=== PATIENT | female | born 1950 | race Caucasian/White ===

== ENCOUNTER → 2016-08-12 | Outpatient (CLI) | payer MEDICARE, OTHER ==
--- NOTE | 2016-08-12 13:40 | WOMENS IMAGING REPORT ---
EXAM DESCRIPTION: BILAT SCREENING MAMMO W/CAD COMPLETED DATE/TIME: 08/12/2016 8:37 am REASON FOR STUDY: Z12.31, ROUTINE SCREENING MAMMO Z12.31 ENCNTR SCREEN MAMMOGRAM FOR MALIGNANT NEOP LASM OF ELISABETH COMPARISON: 2008, 2009 TECHNIQUE: Standard craniocaudal and mediolateral oblique views of each breast recorded using digita l acquisition. LIMITATIONS: None. FINDINGS: No masses, calcifications or architectural distortion. No areas of suspicion. Read with the assistance of CAD. .[facility] - R2 Cenova Version 1.3 .[facility] - R2 Cenova Version 1.3 .[facility] - R2 Cenova Version 2.4 .[facility] - R2 Cenova Version 2.4 .[facility] - R2 Database Modeler Version 9.2 BREAST DENSITY: b. There are scattered areas of fibroglandular density. BIRAD: 1 NEGATIVE RECOMMENDATION: ROUTINE SCREENING COMMENT: PATIENT NOTIFIED BY LETTER. The [employer] recommends an annual screening mammogram for women aged 40 years or over. Each patient will receive a reminder prior to the anniversary date of her mammogram. The [employer] (ACR) has developed recommendations for screening MRI of the breast s in certain patient populations, to be used in conjunction with mammography. Breast MRI surveillanc e may be appropriate for women with more than 20% lifetime risk of developing breast cancer as deter mined by genetic testing, significant family history of the disease, or history of mantle radiation f or Hodgkins Disease. ACR Practice Guidelines 2008. TECHNICAL DOCUMENTATION: FINDING NUMBER: (1) ASSESSMENT: (1) JOB ID: [id number] [employer]- All Rights Reserved
== END ==
LOC: WI 08:11
PROVIDERS: ATTEND Internal Medicine Geriatric Medicine
DX: Z12.31 Encounter for screening mammogram for malignant neoplasm of breast (principal)
CPT/HCPCS: 77067; G0202

== ENCOUNTER → 2016-08-20 | Outpatient (CLI) | payer MEDICARE, OTHER | LOC: RAD 11:45 | PROVIDERS: ATTEND Internal Medicine Medical Oncology | DX: R51 Headache (principal) | CPT/HCPCS: 70553; A9577 ==

== ENCOUNTER → 2016-09-15 | Outpatient (CLI) | payer MEDICARE, OTHER | LOC: RAD 14:47 | PROVIDERS: ATTEND Radiology Radiation Oncology | DX: C34.12 Malignant neoplasm of upper lobe, left bronchus or lung (principal); C77.1 Secondary and unspecified malignant neoplasm of intrathoracic lymph nodes; C34.02 Malignant neoplasm of left main bronchus | CPT/HCPCS: 78815; A9552 ==

== ENCOUNTER → 2016-09-16 | Outpatient (CLI) | payer MEDICARE, OTHER | LOC: RAD 11:13 | PROVIDERS: ATTEND Internal Medicine Medical Oncology | DX: C34.92 Malignant neoplasm of unspecified part of left bronchus or lung (principal); R06.02 Shortness of breath | CPT/HCPCS: 71275 ==

== ENCOUNTER 2016-09-17 13:56 | Inpatient (IN) | payer MEDICARE, OTHER ==
[2016-09-17 14:48] LABS: HEMATOCRIT 32.8 % (36.0-47.0); HEMOGLOBIN 11.1 g/dL (12.0-15.5); HGB HCT DIFFERENCE 0.5; MEAN CORPUSCULAR HEMOGLOBIN 28.5 pg (27.0-33.4); MEAN CORPUSCULAR HGB CONC 33.9 g/dL (32.0-36.0); MEAN CORPUSCULAR VOLUME 84 fl (80-97); RED BLOOD COUNT 3.89 10^6/uL (3.72-5.28); WHITE BLOOD COUNT 4.5 10^3/uL (4.0-10.5)
[2016-09-17] MEDS ORDERED: ACETAMINOPHEN 325 MG TABLET PO PRN (14:55)
[2016-09-17] MEDS ORDERED: GLUCAGON,HUMAN RECOMB 1 MG INJ IM PRN (15:01)
[2016-09-17] MEDS ORDERED: INSULIN LISPRO 100 UNIT/ML 3 ML VIAL SUBCUT PRN (15:01)
[2016-09-17] MEDS ORDERED: DEXTROSE 40% GEL 15 GM TUBE PO PRN ×2 (15:01)
[2016-09-17] MEDS ORDERED: DEXTROSE 50%-WATER 25 GM/50 ML DISP.SYRIN IV PRN ×2 (15:01)
[2016-09-17] MEDS ORDERED: LEVALBUTEROL HCL NEB 1.25 MG/3 ML AMPUL NEB PRN (15:05)
[2016-09-17 15:13] LABS: BAND NEUTROPHILS % (MANUAL) 1 % (3-5); BASOPHILS % (MANUAL) 0 % (0-2); EOSINOPHILS % (MANUAL) 1 % (0-6); LYMPHOCYTES % (MANUAL) 43 % (13-45); NUCLEATED RED BLOOD CELLS 1 /100 WBC (0); TOTAL CELLS COUNTED 100
[2016-09-17 15:15] LABS: ANISOCYTOSIS 1+; POLYCHROMASIA 1+
[2016-09-17 15:28] LABS: ALANINE AMINOTRANSFERASE 23 U/L (9-52); ALBUMIN 3.2 g/dL (3.5-5.0); ALKALINE PHOSPHATASE 96 U/L (38-126); ANION GAP 12 (5-19); ASPARTATE AMINO TRANSFERASE 19 U/L (14-36); BILIRUBIN,TOTAL 0.4 mg/dL (0.2-1.3); BLOOD UREA NITROGEN 10 mg/dL (7-20); CALCIUM 8.4 mg/dL (8.4-10.2); CARBON DIOXIDE 26 mmol/L (22-30); CHLORIDE 104 mmol/L (98-107); CREATININE RESULT 0.62 mg/dL (0.52-1.25); GLUCOSE 102 mg/dL (75-110); POTASSIUM 3.9 mmol/L (3.6-5.0); SODIUM 141.8 mmol/L (137-145); TOTAL PROTEIN 6.3 g/dL (6.3-8.2)
[2016-09-17 15:31] LABS: PROTHROMBIN TIME 14.2 SEC (11.4-15.4)
[2016-09-17 15:32] LABS: PARTIAL THROMBOPLASTIN TIME 31.3 SEC (23.5-35.8)
[2016-09-17] MEDS: NORMAL SALINE 1000 ML 1,000 ML IV PRN (16:33)
[2016-09-17 16:49] LABS: ARTERIAL BLOOD BASE EXCESS -0.5 mmol/L; ARTERIAL BLOOD O2 SATURATION 89.6 % (94-98)
[2016-09-17] MEDS: AMPICILLIN SODIUM/SULBACTAM NA 3 GM in NORMAL SALINE 100 ML IV SCH (17:53)
[2016-09-17] MEDS ORDERED: (PENDING PHARMACY ID) (Temazepam [Restoril] 30 MG) PO PRN (18:09)
--- NOTE | 2016-09-17 18:57 | PDOC H&P ---
History of Present Illness Admission Date/PCP: 09/17/16 13:56 BREANNA GONZALEZ MD History of Present Illness: ROBSON RODRIGUEZ is a 66 year old female admitted to my service following presentation to Dr. Edi Sands office due to persistent hypoxemia. Patient do have history of small cell lung cancer on chemotherapy and possible upcoming radiation therapy. Patient was referred to Dr Sands by Dr Martinez, patient's medical oncologist, due to worsening difficulty with breathing. She is currently on supplemental oxygen via nasal canula on portable concentrator at home. Patient did admit to increased nonproductive coughing. she had a CTA chest completed at our facility on 09/16/2016 for evaluation of her shortness of breath with findings suggestive of left basilar air space disease process. No evidence of pulmonary embolism. Patient denied any definite fever but reported been cold all the time. No demonstrable chills. She denied any chest pain. No nausea or vomiting. No abdominal pain. Appetite and p.o intake remain minimal. Her oxygen saturation remain below 90 % despite increase in oxygen delivery at 6 Liters / minute via nasal canula. Past Medical History Cardiac Medical History: Reports: Hyperlipidema Denies: Coronary Artery Disease, Myocardial Infarction, Hypertension Pulmonary Medical History: Reports: Asthma - medicated prn/no hospitalizations, Chronic Obstructive Pulmonary Disease (COPD) - 2l Denies: Bronchitis, Pneumonia Neurological Medical History: Denies: Seizures Endocrine Medical History: Reports: Diabetes Mellitus Type 2 GI Medical History: Reports: Gastroesophageal Reflux Disease Denies: Hepatitis, Hiatal Hernia Musculoskeltal Medical History: Reports: Arthritis Psychiatric Medical History: Reports: Depression Hematology: Denies: Anemia, Sickle Cell Disease Past Surgical History Past Surgical History: Reports: Section, Hysterectomy Denies: Amputation, Mastectomy, Pacemaker Comment Only: Orthopedic Surgery - bilateral knee Social History Smoking Status: Current Every Day Smoker Cigarettes Packs Per Day: 1 Number of Years Smokin Frequency of Alcohol Use: None Hx Recreational Drug Use: No Drugs: None Hx Prescription Drug Abuse: No - Advance Directive Resuscitation Status: Do Not Resuscitate - I had extensive discussion with patient regarding resuscitation status, at this time in full lucidity patient elect to be a DNR status. Spouse and assigned nurse at bedside when this discussion and decision was made. Family History Family History: None Parental Family History Reviewed: Yes Children Family History Reviewed: Yes Sibling(s) Family History Reviewed.: Yes Medication/Allergy Home Medications: Albuterol Sulfate [Albuterol Sulfate 2.5mg/3 mL] 5 mg NEB RTQ6 09/17/16 Chlordiazepoxide/Clidinium Br [Librax Capsule] 1 cap PO ACHS 09/17/16 Ipratropium/Albuterol Sulfate [Duoneb 3 ml Ampul] 3 ml NEB RTQ6HP PRN 09/17/16 Lorazepam [Ativan 0.5 mg Tablet] 0.5 mg PO Q6HP PRN 09/17/16 Omeprazole 20 mg PO DAILYP PRN 09/17/16 Ondansetron HCl [Zofran 8 mg Tablet] 8 mg PO Q8 09/17/16 Pregabalin [Lyrica 75 mg Capsule] 75 mg PO Q6 09/17/16 Simvastatin [Zocor 20 mg Tablet] 20 mg PO QHS 09/17/16 Temazepam [Restoril] 30 mg PO HSP PRN 09/17/16 Venlafaxine HCl [Effexor 75 mg Tablet] 75 mg PO Q12 09/17/16 Allergies/Adverse Reactions: codeine [Codeine] Adverse Reaction (Unknown, Verified 10/24/15 10:31) Dizziness Review of Systems Constitutional: PRESENT: anorexia, chills, weakness. ABSENT: as per HPI, fatigue, fever(s), headache(s), night sweats, weight gain, weight loss, other Eyes: ABSENT: visual disturbances Ears: ABSENT: hearing changes Nose, Mouth, and Throat: ABSENT: as per HPI, headache(s), mouth pain, sore throat, vertigo, other Cardiovascular: PRESENT: dyspnea on exertion. ABSENT: as per HPI, chest pain, edema, orthropnea, palpitations, other Respiratory: PRESENT: cough, dyspnea. ABSENT: as per HPI, hemoptysis, sputum, other Gastrointestinal: ABSENT: as per HPI, abdominal pain, bloating, coffee ground emesis, constipation, diarrhea, dysphagia, heartburn, hematemesis, hematochezia , melena, nausea, vomiting, other Genitourinary: ABSENT: dysuria, hematuria Musculoskeletal: PRESENT: deformity - related to arthritis involvement of joint Integumentary: ABSENT: rash, wounds Neurological: ABSENT: abnormal gait, abnormal speech, confusion, dizziness, focal weakness, syncope Psychiatric: PRESENT: anxiety. ABSENT: as per HPI, depression, hallucinations, homidical ideation, suicidal ideation, other Endocrine: ABSENT: cold intolerance, heat intolerance, menstrual abnormalities, polydipsia, polyuria Hematologic/Lymphatic: ABSENT: easy bleeding, easy bruising, lymphadenopathy Physical Exam Vital Signs: Temp Pulse Resp BP Pulse Ox 97.5 F 110 H 22 H 123/55 L 89 L 09/17/16 14:54 09/17/16 16:25 09/17/16 16:25 09/17/16 14:54 09/17/16 16:25 Intake & Output 09/16/16 09/17/16 09/18/16 06:59 06:59 06:59 Intake Total 800 Balance 800 Weight 66.3 kg General appearance: PRESENT: mild distress - with supplemental oxygen via nasal cannula in use Head exam: PRESENT: atraumatic, normocephalic Eye exam: PRESENT: conjunctiva pink, EOMI, PERRLA. ABSENT: scleral icterus Ear exam: PRESENT: normal external ear exam Mouth exam: PRESENT: moist, tongue midline Throat exam: ABSENT: post pharyngeal erythema, tonsillar erythema, tonsillar exudate, tonsillogmegaly, other Neck exam: PRESENT: full ROM. ABSENT: carotid bruit, JVD, lymphadenopathy, thyromegaly Respiratory exam: PRESENT: crackles, decreased breath sounds, prolonged expiratory phas, rhonchi, tachypnea, wheezes Cardiovascular exam: PRESENT: tachycardia. ABSENT: bradycardia, clicks, diastolic murmur, gallop, irregular rhythm, RRR, rubs, +S1, +S2, systolic murmur , other Pulses: PRESENT: normal dorsalis pedis pul, +2 pedal pulses bilateral Vascular exam: PRESENT: normal capillary refill GI/Abdominal exam: PRESENT: normal bowel sounds, soft. ABSENT: distended, guarding, mass, organolmegaly, rebound, tenderness Rectal exam: PRESENT: deferred Extremities exam: PRESENT: full ROM Musculoskeletal exam: PRESENT: deformity - due to joint involvement with arthritis Neurological exam: PRESENT: alert, awake, oriented to person, oriented to place , oriented to time, oriented to situation, CN II-XII grossly intact. ABSENT: motor sensory deficit Psychiatric exam: PRESENT: appropriate affect, normal mood. ABSENT: homicidal ideation, suicidal ideation Skin exam: PRESENT: dry, intact, warm. ABSENT: cyanosis, rash Results Laboratory Results: 09/17/16 14:32 09/17/16 14:32 09/17/16 09/17/16 09/17/16 14:32 14:32 16:25 WBC 4.5 RBC 3.89 Hgb 11.1 L Hct 32.8 L MCV 84 MCH 28.5 MCHC 33.9 RDW 17.0 H Plt Count 248 Seg Neutrophils % Not Reportable Lymphocytes % Not Reportable Monocytes % Not Reportable Eosinophils % Not Reportable Basophils % Not Reportable Absolute Neutrophils Not Reportable Absolute Lymphocytes Not Reportable Absolute Monocytes Not Reportable Absolute Eosinophils Not Reportable Absolute Basophils Not Reportable Carbonic Acid 1.07 HCO3/H2CO3 Ratio 21:1 ABG pH 7.43 ABG pCO2 35.7 ABG pO2 54.6 L ABG HCO3 23.3 ABG O2 Saturation 89.6 L ABG Base Excess -0.5 FiO2 6 L Sodium 141.8 Potassium 3.9 Chloride 104 Carbon Dioxide 26 Anion Gap 12 BUN 10 Creatinine 0.62 Est GFR ( Amer) > 60 Est GFR (Non-Af Amer) > 60 Glucose 102 Calcium 8.4 Total Bilirubin 0.4 AST 19 ALT 23 Alkaline Phosphatase 96 Total Protein 6.3 Albumin 3.2 L Status: Imported from PACS - CTA Chest completed on 09/16/2016 at this facility. Assessment & Plan - Diagnosis (1) Acute and chronic respiratory failure Qualifiers: Respiratory failure complication: hypoxia Qualified Code(s): J96.21 - Acute and chronic respiratory failure with hypoxia Is this a current diagnosis for this admission?: YesPlan: See admitting physician orders. (2) Probable sepsis Is this a current diagnosis for this admission?: YesPlan: See admitting physician orders. (3) Pneumonia due to infectious organism Qualifiers: Laterality: left Lung location: lower lobe of lung Qualified Code(s): J18.1 - Lobar pneumonia, unspecified organism Is this a current diagnosis for this admission?: YesPlan: See admitting physician orders. (4) COPD (chronic obstructive pulmonary disease) with emphysema Qualifiers: Emphysema type: unspecified Qualified Code(s): J43.9 - Emphysema, unspecified Is this a current diagnosis for this admission?: YesPlan: See admitting physician orders. (5) Small cell lung cancer Qualifiers: Laterality: left Qualified Code(s): C34.92 - Malignant neoplasm of unspecified part of left bronchus or lung Is this a current diagnosis for this admission?: YesPlan: See admitting physician orders. (6) Diabetes mellitus type 2 in nonobese Is this a current diagnosis for this admission?: YesPlan: See admitting physician orders. (7) Mixed anxiety and depressive disorder Is this a current diagnosis for this admission?: YesPlan: See admitting physician orders. (8) GERD (gastroesophageal reflux disease) Qualifiers: Esophagitis presence: without esophagitis Qualified Code(s): K21.9 - Gastro-esophageal reflux disease without esophagitis Is this a current diagnosis for this admission?: YesPlan: See admitting physician orders. (9) Osteoarthritis Qualifiers: Osteoarthritis location: multiple joints Osteoarthritis type: primary Qualified Code(s): M15.0 - Primary generalized (osteo)arthritis Is this a current diagnosis for this admission?: YesPlan: See admitting physician orders. (10) Persistent insomnia Is this a current diagnosis for this admission?: YesPlan: See admitting physician orders. - Time Time Spent: 50 to 70 Minutes Medications reviewed and adjusted accordingly: Yes Anticipated discharge: Home with Homehealth Within: Other - Inpatient Certification Based on my medical assessment, after consideration of the patient's comorbidities, presenting symptoms, or acuity I expect that the services needed warrant INPATIENT care.: Yes I certify that my determination is in accordance with my understanding of Medicare's requirements for reasonable and necessary INPATIENT services [42 CFR 412.3e].: Yes Medical Necessity: Need Close Monitoring Due to Risk of Patient Decompensation, Need For IV Fluids, Need For Continuous Telemetry Monitoring, Need for Nebulizer Therapy and Monitoring of Response, Need for IV Antibiotics, Risk of Complication if Not Cared For in Hospital Post 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
[2016-09-17] MEDS: SIMVASTATIN 10 MG TABLET PO SCH (21:45)
[2016-09-17] MEDS: VENLAFAXINE HCL 75 MG TABLET PO SCH (21:46)
[2016-09-17] MEDS: BENZONATATE 100 MG CAPSULE PO SCH (21:46)
[2016-09-17] MEDS: LORAZEPAM 0.5 MG TABLET PO PRN (21:51)
[2016-09-17] MEDS: TEMAZEPAM 15 MG CAPSULE PO PRN (21:51)
[2016-09-18] MEDS ORDERED: PREGABALIN 75 MG CAPSULE PO SCH
[2016-09-18] MEDS: AMPICILLIN SODIUM/SULBACTAM NA 3 GM in NORMAL SALINE 100 ML IV SCH ×4 (01:00→17:48)
[2016-09-18] MEDS: NORMAL SALINE 1000 ML 1,000 ML IV PRN (01:03)
[2016-09-18] MEDS: BENZONATATE 100 MG CAPSULE PO SCH ×3 (05:20→21:38)
[2016-09-18] MEDS: LANSOPRAZOLE 30 MG TAB.RAP.DR PO SCH (05:20)
[2016-09-18 06:44] LABS: HEMATOCRIT 28.5 % (36.0-47.0); HEMOGLOBIN 9.6 g/dL (12.0-15.5); HGB HCT DIFFERENCE 0.3; MEAN CORPUSCULAR HEMOGLOBIN 28.1 pg (27.0-33.4); MEAN CORPUSCULAR HGB CONC 33.7 g/dL (32.0-36.0); MEAN CORPUSCULAR VOLUME 84 fl (80-97); RED BLOOD COUNT 3.41 10^6/uL (3.72-5.28); RED CELL DISTRIBUTION WIDTH 17.3 % (11.5-14.0); WHITE BLOOD COUNT 5.3 10^3/uL (4.0-10.5)
[2016-09-18 06:55] LABS: ANION GAP 8 (5-19); BLOOD UREA NITROGEN 10 mg/dL (7-20); CALCIUM 7.9 mg/dL (8.4-10.2); CARBON DIOXIDE 26 mmol/L (22-30); CHLORIDE 108 mmol/L (98-107); GLUCOSE 96 mg/dL (75-110); POTASSIUM 3.7 mmol/L (3.6-5.0); SODIUM 141.9 mmol/L (137-145)
[2016-09-18 07:12] LABS: BASOPHILS % (MANUAL) 0 % (0-2); EOSINOPHILS % (MANUAL) 0 % (0-6); LYMPHOCYTES % (MANUAL) 27 % (13-45); TOTAL CELLS COUNTED 100
[2016-09-18 07:14] LABS: ANISOCYTOSIS 1+; OVALOCYTES SLIGHT; POIKILOCYTOSIS SLIGHT; POLYCHROMASIA SLIGHT; SCHISTOCYTES SLIGHT; TOXIC GRANULATION 1+
[2016-09-18] MEDS: ENOXAPARIN SODIUM INJ 40 MG/0.4 ML DISP.SYRIN SUBCUT SCH (08:23)
--- NOTE | 2016-09-18 08:28 | PDOC PROGRESS REPORT ---
Subjective Progress Note for:: 09/18/16 Subjective:: Patient reported some improvement in her breathing. Coughing persist but minimally productive. No chest pain. No nausea, vomiting or abdominal pain. No reported fever or chills. Appetite and po intake remain fair. She remain on IV Unasyn coverage. Blood culture is no growth to date. Physical Exam Vital Signs: Temp Pulse Resp BP Pulse Ox 98.2 F 106 H 20 137/75 H 93 09/18/16 07:43 09/18/16 07:43 09/18/16 07:43 09/18/16 07:43 09/18/16 07:43 Intake & Output 09/17/16 09/18/16 09/19/16 06:59 06:59 06:59 Intake Total 1825 Output Total 0 Balance 1825 Weight 66.3 kg General appearance: PRESENT: no acute distress - on supplemental oxygen via nasal canula at 6L/min, cooperative, mild distress - on supplemental oxygen via nasal canula at Head exam: PRESENT: atraumatic, normocephalic Eye exam: PRESENT: conjunctiva pink, EOMI, PERRLA. ABSENT: scleral icterus Ear exam: PRESENT: normal external ear exam Mouth exam: PRESENT: moist, tongue midline Neck exam: PRESENT: full ROM. ABSENT: carotid bruit, JVD, lymphadenopathy, thyromegaly Respiratory exam: PRESENT: crackles - scattered, decreased breath sounds - at lung bases, rhonchi - minimal Cardiovascular exam: PRESENT: RRR. ABSENT: diastolic murmur, rubs, systolic murmur GI/Abdominal exam: PRESENT: normal bowel sounds, soft. ABSENT: distended, guarding, mass, organolmegaly, rebound, tenderness Extremities exam: PRESENT: full ROM Musculoskeletal exam: PRESENT: deformity - due to arthritis joint involvement Neurological exam: PRESENT: alert, awake, oriented to person, oriented to place , oriented to time, oriented to situation, CN II-XII grossly intact. ABSENT: motor sensory deficit Psychiatric exam: PRESENT: appropriate affect, normal mood. ABSENT: homicidal ideation, suicidal ideation Results Laboratory Results: 09/18/16 05:35 09/18/16 05:35 09/17/16 09/17/16 09/17/16 14:32 14:32 16:25 WBC 4.5 RBC 3.89 Hgb 11.1 L Hct 32.8 L MCV 84 MCH 28.5 MCHC 33.9 RDW 17.0 H Plt Count 248 Seg Neutrophils % Not Reportable Lymphocytes % Not Reportable Monocytes % Not Reportable Eosinophils % Not Reportable Basophils % Not Reportable Absolute Neutrophils Not Reportable Absolute Lymphocytes Not Reportable Absolute Monocytes Not Reportable Absolute Eosinophils Not Reportable Absolute Basophils Not Reportable Carbonic Acid 1.07 HCO3/H2CO3 Ratio 21:1 ABG pH 7.43 ABG pCO2 35.7 ABG pO2 54.6 L ABG HCO3 23.3 ABG O2 Saturation 89.6 L ABG Base Excess -0.5 FiO2 6 L Sodium 141.8 Potassium 3.9 Chloride 104 Carbon Dioxide 26 Anion Gap 12 BUN 10 Creatinine 0.62 Est GFR ( Amer) > 60 Est GFR (Non-Af Amer) > 60 Glucose 102 Calcium 8.4 Total Bilirubin 0.4 AST 19 ALT 23 Alkaline Phosphatase 96 Total Protein 6.3 Albumin 3.2 L 09/18/16 09/18/16 05:35 05:35 WBC 5.3 RBC 3.41 L Hgb 9.6 L Hct 28.5 L MCV 84 MCH 28.1 MCHC 33.7 RDW 17.3 H Plt Count 249 Seg Neutrophils % Not Reportable Lymphocytes % Not Reportable Monocytes % Not Reportable Eosinophils % Not Reportable Basophils % Not Reportable Absolute Neutrophils Not Reportable Absolute Lymphocytes Not Reportable Absolute Monocytes Not Reportable Absolute Eosinophils Not Reportable Absolute Basophils Not Reportable Carbonic Acid HCO3/H2CO3 Ratio ABG pH ABG pCO2 ABG pO2 ABG HCO3 ABG O2 Saturation ABG Base Excess FiO2 Sodium 141.9 Potassium 3.7 Chloride 108 H Carbon Dioxide 26 Anion Gap 8 BUN 10 Creatinine 0.50 L Est GFR ( Amer) > 60 Est GFR (Non-Af Amer) > 60 Glucose 96 Calcium 7.9 L Total Bilirubin AST ALT Alkaline Phosphatase Total Protein Albumin Assessment & Plan - Diagnosis (1) Acute and chronic respiratory failure Qualifiers: Respiratory failure complication: hypoxia Qualified Code(s): J96.21 - Acute and chronic respiratory failure with hypoxia Is this a current diagnosis for this admission?: YesPlan: See attending physician orders. (2) Probable sepsis Is this a current diagnosis for this admission?: YesPlan: See attending physician orders. (3) Pneumonia due to infectious organism Qualifiers: Laterality: left Lung location: lower lobe of lung Qualified Code(s): J18.1 - Lobar pneumonia, unspecified organism Is this a current diagnosis for this admission?: YesPlan: See attending physician orders. (4) COPD (chronic obstructive pulmonary disease) with emphysema Qualifiers: Emphysema type: unspecified Qualified Code(s): J43.9 - Emphysema, unspecified Is this a current diagnosis for this admission?: YesPlan: See attending physician orders. (5) Small cell lung cancer Qualifiers: Laterality: left Qualified Code(s): C34.92 - Malignant neoplasm of unspecified part of left bronchus or lung Is this a current diagnosis for this admission?: YesPlan: See attending physician orders. (6) Diabetes mellitus type 2 in nonobese Is this a current diagnosis for this admission?: YesPlan: See attending physician orders. Patient refused diabetic dietary restrictions. (7) Mixed anxiety and depressive disorder Is this a current diagnosis for this admission?: YesPlan: See attending physician orders. (8) GERD (gastroesophageal reflux disease) Qualifiers: Esophagitis presence: without esophagitis Qualified Code(s): K21.9 - Gastro-esophageal reflux disease without esophagitis Is this a current diagnosis for this admission?: YesPlan: See attending physician orders. (9) Osteoarthritis Qualifiers: Osteoarthritis location: multiple joints Osteoarthritis type: primary Qualified Code(s): M15.0 - Primary generalized (osteo)arthritis Is this a current diagnosis for this admission?: YesPlan: See attending physician orders. (10) Persistent insomnia Is this a current diagnosis for this admission?: YesPlan: See attending physician orders. - Time Time Spent with patient: 25-34 minutes Medications reviewed and adjusted accordingly: Yes Anticipated discharge: Home with Homehealth - Inpatient Certification Based on my medical assessment, after consideration of the patient's comorbidities, presenting symptoms, or acuity I expect that the services needed warrant INPATIENT care.: Yes I certify that my determination is in accordance with my understanding of Medicare's requirements for reasonable and necessary INPATIENT services [42 CFR 412.3e].: Yes Medical Necessity: Need Close Monitoring Due to Risk of Patient Decompensation, Need For IV Fluids, Need For Continuous Telemetry Monitoring, Need for IV Antibiotics, Risk of Complication if Not Cared For in Hospital Post 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
[2016-09-18] MEDS: VENLAFAXINE HCL 75 MG TABLET PO SCH ×2 (09:02→21:38)
[2016-09-18] MEDS: LORAZEPAM 0.5 MG TABLET PO PRN ×2 (09:03→21:38)
[2016-09-18] MEDS: DOCUSATE SODIUM 100 MG CAPSULE PO SCH (09:04)
[2016-09-18] MEDS: NICOTINE 21 MG/24 HR PATCH.TD24 TD SCH (09:04)
[2016-09-18 14:12] LABS: APPEARANCE,URINE CLEAR; BILIRUBIN,URINE NEGATIVE (NEGATIVE); GLUCOSE, URINE NEGATIVE (NEGATIVE); KETONES,URINE NEGATIVE (NEGATIVE); LEUKOCYTE ESTERASE,URINE NEGATIVE (NEGATIVE); NITRITE,URINE NEGATIVE (NEGATIVE); PROTEIN,URINE NEGATIVE (NEGATIVE); UROBILINOGEN,URINE NEGATIVE mg/dL (<2.0)
[2016-09-18] MEDS: SIMVASTATIN 10 MG TABLET PO SCH (21:38)
[2016-09-18] MEDS: TEMAZEPAM 15 MG CAPSULE PO PRN (21:38)
[2016-09-19] MEDS: AMPICILLIN SODIUM/SULBACTAM NA 3 GM in NORMAL SALINE 100 ML IV SCH ×5 (00:51→23:46)
[2016-09-19] MEDS: BENZONATATE 100 MG CAPSULE PO SCH ×3 (06:01→20:42)
[2016-09-19] MEDS: LANSOPRAZOLE 30 MG TAB.RAP.DR PO SCH (06:02)
[2016-09-19] MEDS: VENLAFAXINE HCL 75 MG TABLET PO SCH ×2 (10:22→20:43)
[2016-09-19] MEDS: LORAZEPAM 0.5 MG TABLET PO PRN ×2 (10:22→20:43)
[2016-09-19] MEDS: NICOTINE 21 MG/24 HR PATCH.TD24 TD SCH (10:24)
[2016-09-19] MEDS: ENOXAPARIN SODIUM INJ 40 MG/0.4 ML DISP.SYRIN SUBCUT SCH (10:24)
[2016-09-19] MEDS: DOCUSATE SODIUM 100 MG CAPSULE PO SCH (10:24)
--- NOTE | 2016-09-19 11:32 | Physician Advisory Note ---
Physician Advisor ProgressNote .: Pursuant to the plan for [facility], I have reviewed the medical record for this patient. Physician Advisor Statement: Possible documentation opportunities if attending agrees: 1. "LLL pneumonia, suspect gram-negative organism given underlying COPD & chemotx" 2. "probable sepsis, due to pneumonia" (always must state explicitly the cause of sepsis for the coders, even though it may seem obvious to clinician) 3. "protein-calorie malnutrition [state mild, mod, or severe] with BMI 27.6, Cr 0.50, SCLC on chemotherapy, ____[?wt loss, ?appetite loss, ]" [if possible, give specifics on intake, wt loss, loss of SQ fat & muscle mass, diminished hand program therapist strength, & clinical importance such as (A) nutritional assessment ordered, (B) modified diet or supplements ordered, (C) additional labs ordered, (D) prolonged wound healing time, (E) delayed infxn clearance] As always, if concerned about any unstable VS or abnormal labs, please comment on them & note what doing about them, & please document each day the potential clinical problems you are concerned could occur if pt not kept in hospital for tx at this time. Thanks for your help with documentation accuracy/specificity improvement! Stefania Santos MD [facility] Physician Advisor, Fellow of Hospital Medicine
--- NOTE | 2016-09-19 19:58 | PDOC PROGRESS REPORT ---
Subjective Progress Note for:: 09/19/16 Subjective:: Patient was seen by the bedside, she was admitted because of pneumonia, she complained of diarrhea, loose stool, the stool study was negative for Clostridium difficile toxin, she will be treated symptomatically with Lomotil Physical Exam Vital Signs: Temp Pulse Resp BP Pulse Ox 98.1 F 70 19 125/74 90 L 09/19/16 15:35 09/19/16 19:00 09/19/16 15:35 09/19/16 15:35 09/19/16 15:35 Intake & Output 09/18/16 09/19/16 09/20/16 06:59 06:59 06:59 Intake Total 1825 3144 1159 Output Total 0 400 Balance 1825 2744 1159 Weight 66.3 kg 66.3 kg General appearance: PRESENT: no acute distress Eye exam: PRESENT: PERRLA Respiratory exam: PRESENT: crackles Cardiovascular exam: PRESENT: +S1, +S2 GI/Abdominal exam: PRESENT: soft Neurological exam: PRESENT: alert, CN II-XII grossly intact Results Laboratory Results: 09/18/16 05:35 09/18/16 05:35 Assessment & Plan - Diagnosis (1) Acute and chronic respiratory failure Qualifiers: Respiratory failure complication: hypoxia Qualified Code(s): J96.21 - Acute and chronic respiratory failure with hypoxia Is this a current diagnosis for this admission?: Yes (2) Diarrhea Is this a current diagnosis for this admission?: YesPlan: lomotil (3) Diabetes mellitus type 2 in nonobese Is this a current diagnosis for this admission?: Yes (4) GERD (gastroesophageal reflux disease) Qualifiers: Esophagitis presence: without esophagitis Qualified Code(s): K21.9 - Gastro-esophageal reflux disease without esophagitis Is this a current diagnosis for this admission?: Yes (5) Mixed anxiety and depressive disorder Is this a current diagnosis for this admission?: Yes (6) COPD (chronic obstructive pulmonary disease) with emphysema Qualifiers: Emphysema type: unspecified Qualified Code(s): J43.9 - Emphysema, unspecified Is this a current diagnosis for this admission?: Yes (7) Pneumonia due to infectious organism Qualifiers: Laterality: left Lung location: lower lobe of lung Qualified Code(s): J18.1 - Lobar pneumonia, unspecified organism Is this a current diagnosis for this admission?: YesPlan: She will continue the antibiotic
[2016-09-19] MEDS: TEMAZEPAM 15 MG CAPSULE PO PRN (20:42)
[2016-09-19] MEDS: SIMVASTATIN 10 MG TABLET PO SCH (20:43)
[2016-09-19] MEDS: DIPHENOXYLATE HCL/ATROP SULF 2.5-0.025 MG TABLET PO SCH (20:43)
[2016-09-19] MEDS: NORMAL SALINE 1000 ML 1,000 ML IV PRN (23:48)
[2016-09-20] MEDS: BENZONATATE 100 MG CAPSULE PO SCH ×3 (05:50→21:15)
[2016-09-20] MEDS: LANSOPRAZOLE 30 MG TAB.RAP.DR PO SCH (05:50)
[2016-09-20] MEDS: AMPICILLIN SODIUM/SULBACTAM NA 3 GM in NORMAL SALINE 100 ML IV SCH ×4 (05:50→23:04)
[2016-09-20] MEDS: ENOXAPARIN SODIUM INJ 40 MG/0.4 ML DISP.SYRIN SUBCUT SCH (08:34)
[2016-09-20] MEDS: DIPHENOXYLATE HCL/ATROP SULF 2.5-0.025 MG TABLET PO SCH ×4 (09:37→21:15)
[2016-09-20] MEDS: VENLAFAXINE HCL 75 MG TABLET PO SCH ×2 (09:37→21:14)
[2016-09-20] MEDS: LORAZEPAM 0.5 MG TABLET PO PRN ×2 (09:40→21:14)
[2016-09-20] MEDS: DOCUSATE SODIUM 100 MG CAPSULE PO SCH (09:41)
[2016-09-20] MEDS: NICOTINE 21 MG/24 HR PATCH.TD24 TD SCH (09:41)
[2016-09-20] MEDS: TEMAZEPAM 15 MG CAPSULE PO PRN (21:14)
[2016-09-20] MEDS: SIMVASTATIN 10 MG TABLET PO SCH (21:14)
[2016-09-21] MEDS: NORMAL SALINE 1000 ML 1,000 ML IV PRN (02:21)
[2016-09-21] MEDS: LANSOPRAZOLE 30 MG TAB.RAP.DR PO SCH (06:19)
[2016-09-21] MEDS: AMPICILLIN SODIUM/SULBACTAM NA 3 GM in NORMAL SALINE 100 ML IV SCH ×4 (06:19→23:58)
[2016-09-21] MEDS: BENZONATATE 100 MG CAPSULE PO SCH ×4 (06:21→22:17)
[2016-09-21] MEDS: LORAZEPAM 0.5 MG TABLET PO PRN ×2 (09:16→22:17)
[2016-09-21] MEDS: DIPHENOXYLATE HCL/ATROP SULF 2.5-0.025 MG TABLET PO SCH ×5 (09:16→22:15)
[2016-09-21] MEDS: ENOXAPARIN SODIUM INJ 40 MG/0.4 ML DISP.SYRIN SUBCUT SCH (09:17)
[2016-09-21] MEDS: NICOTINE 21 MG/24 HR PATCH.TD24 TD SCH (09:17)
[2016-09-21] MEDS: VENLAFAXINE HCL 75 MG TABLET PO SCH ×2 (09:17→22:17)
[2016-09-21] MEDS: DOCUSATE SODIUM 100 MG CAPSULE PO SCH (09:17)
--- NOTE | 2016-09-21 16:27 | PDOC PROGRESS REPORT ---
Subjective Progress Note for:: 09/20/16 Subjective:: She was seen by the bedside she continues to have diarrhea despite taking Lomotil Physical Exam Vital Signs: Temp Pulse Resp BP Pulse Ox 98.5 F 87 18 135/65 H 96 09/20/16 15:30 09/20/16 19:00 09/20/16 15:30 09/20/16 15:30 09/20/16 17:20 Intake & Output 09/19/16 09/20/16 09/21/16 06:59 06:59 06:59 Intake Total 3144 1759 500 Output Total 400 Balance 2744 1759 500 Weight 66.3 kg General appearance: PRESENT: no acute distress Head exam: PRESENT: atraumatic Eye exam: PRESENT: PERRLA Respiratory exam: PRESENT: decreased breath sounds Cardiovascular exam: PRESENT: +S1, +S2 Results Laboratory Results: 09/18/16 05:35 09/18/16 05:35 09/18/16 12:54 Clean Catch Midstream Urine Culture - Final NO GROWTH 2 DAYS Assessment & Plan - Diagnosis (1) Acute and chronic respiratory failure Qualifiers: Respiratory failure complication: hypoxia Qualified Code(s): J96.21 - Acute and chronic respiratory failure with hypoxia Is this a current diagnosis for this admission?: Yes (2) Diarrhea Is this a current diagnosis for this admission?: Yes (3) Diabetes mellitus type 2 in nonobese Is this a current diagnosis for this admission?: Yes (4) GERD (gastroesophageal reflux disease) Qualifiers: Esophagitis presence: without esophagitis Qualified Code(s): K21.9 - Gastro-esophageal reflux disease without esophagitis Is this a current diagnosis for this admission?: Yes (5) Mixed anxiety and depressive disorder Is this a current diagnosis for this admission?: Yes (6) COPD (chronic obstructive pulmonary disease) with emphysema Qualifiers: Emphysema type: unspecified Qualified Code(s): J43.9 - Emphysema, unspecified Is this a current diagnosis for this admission?: Yes (7) Pneumonia due to infectious organism Qualifiers: Laterality: left Lung location: lower lobe of lung Qualified Code(s): J18.1 - Lobar pneumonia, unspecified organism Is this a current diagnosis for this admission?: Yes
--- NOTE | 2016-09-21 16:30 | PDOC PROGRESS REPORT ---
Subjective Progress Note for:: 09/21/16 Subjective:: She is still complaining of diarrhea though she is improving, she would love to go home Physical Exam Vital Signs: Temp Pulse Resp BP Pulse Ox 98.0 F 75 18 135/65 H 94 09/21/16 12:40 09/21/16 12:40 09/21/16 12:40 09/21/16 12:40 09/21/16 12:40 Intake & Output 09/20/16 09/21/16 09/22/16 06:59 06:59 06:59 Intake Total 1759 1680 300 Balance 1759 1680 300 General appearance: PRESENT: no acute distress Eye exam: PRESENT: PERRLA Neck exam: PRESENT: full ROM Respiratory exam: PRESENT: decreased breath sounds Cardiovascular exam: PRESENT: +S1, +S2 GI/Abdominal exam: PRESENT: soft Neurological exam: PRESENT: alert Results Laboratory Results: 09/18/16 05:35 09/18/16 05:35 Assessment & Plan - Diagnosis (1) Acute and chronic respiratory failure Qualifiers: Respiratory failure complication: hypoxia Qualified Code(s): J96.21 - Acute and chronic respiratory failure with hypoxia Is this a current diagnosis for this admission?: Yes (2) Diarrhea Is this a current diagnosis for this admission?: Yes (3) Diabetes mellitus type 2 in nonobese Is this a current diagnosis for this admission?: Yes (4) GERD (gastroesophageal reflux disease) Qualifiers: Esophagitis presence: without esophagitis Qualified Code(s): K21.9 - Gastro-esophageal reflux disease without esophagitis Is this a current diagnosis for this admission?: Yes (5) Mixed anxiety and depressive disorder Is this a current diagnosis for this admission?: Yes (6) COPD (chronic obstructive pulmonary disease) with emphysema Qualifiers: Emphysema type: unspecified Qualified Code(s): J43.9 - Emphysema, unspecified Is this a current diagnosis for this admission?: Yes (7) Pneumonia due to infectious organism Qualifiers: Laterality: left Lung location: lower lobe of lung Qualified Code(s): J18.1 - Lobar pneumonia, unspecified organism Is this a current diagnosis for this admission?: YesPlan: She will continue present antibiotic
[2016-09-21] MEDS: TEMAZEPAM 15 MG CAPSULE PO PRN (22:17)
[2016-09-21] MEDS: SIMVASTATIN 10 MG TABLET PO SCH (22:17)
[2016-09-22] MEDS: NORMAL SALINE 1000 ML 1,000 ML IV PRN (04:26)
[2016-09-22] MEDS: BENZONATATE 100 MG CAPSULE PO SCH ×3 (06:57→21:24)
[2016-09-22] MEDS: AMPICILLIN SODIUM/SULBACTAM NA 3 GM in NORMAL SALINE 100 ML IV SCH ×4 (06:57→23:58)
[2016-09-22] MEDS: LANSOPRAZOLE 30 MG TAB.RAP.DR PO SCH (06:58)
[2016-09-22] MEDS: ENOXAPARIN SODIUM INJ 40 MG/0.4 ML DISP.SYRIN SUBCUT SCH (09:08)
[2016-09-22] MEDS: NICOTINE 21 MG/24 HR PATCH.TD24 TD SCH (09:09)
[2016-09-22] MEDS: DIPHENOXYLATE HCL/ATROP SULF 2.5-0.025 MG TABLET PO SCH ×4 (09:13→21:26)
[2016-09-22] MEDS: VENLAFAXINE HCL 75 MG TABLET PO SCH ×2 (09:13→21:24)
[2016-09-22] MEDS: LORAZEPAM 0.5 MG TABLET PO PRN ×2 (09:15→21:23)
[2016-09-22] MEDS: DOCUSATE SODIUM 100 MG CAPSULE PO SCH (09:16)
--- NOTE | 2016-09-22 15:25 | PDOC PROGRESS REPORT ---
Subjective Progress Note for:: 09/22/16 Subjective:: She has no new complaints Physical Exam Vital Signs: Temp Pulse Resp BP Pulse Ox 97.7 F 114 H 19 97/64 L 90 L 09/22/16 11:10 09/22/16 11:10 09/22/16 11:10 09/22/16 11:10 09/22/16 11:10 Intake & Output 09/21/16 09/22/16 09/23/16 06:59 06:59 06:59 Intake Total 1680 2310 100 Balance 1680 2310 100 General appearance: PRESENT: no acute distress Eye exam: PRESENT: PERRLA Respiratory exam: PRESENT: decreased breath sounds Cardiovascular exam: PRESENT: +S1, +S2 GI/Abdominal exam: PRESENT: soft Neurological exam: PRESENT: alert Results Laboratory Results: 09/18/16 05:35 09/18/16 05:35 09/17/16 14:32 Blood Blood Culture - Final NO GROWTH IN 5 DAYS Assessment & Plan - Diagnosis (1) Acute and chronic respiratory failure Qualifiers: Respiratory failure complication: hypoxia Qualified Code(s): J96.21 - Acute and chronic respiratory failure with hypoxia Is this a current diagnosis for this admission?: YesPlan: She probably could be discharged home in the morning (2) Diarrhea Is this a current diagnosis for this admission?: Yes (3) Diabetes mellitus type 2 in nonobese Is this a current diagnosis for this admission?: Yes (4) GERD (gastroesophageal reflux disease) Qualifiers: Esophagitis presence: without esophagitis Qualified Code(s): K21.9 - Gastro-esophageal reflux disease without esophagitis Is this a current diagnosis for this admission?: Yes (5) Mixed anxiety and depressive disorder Is this a current diagnosis for this admission?: Yes (6) COPD (chronic obstructive pulmonary disease) with emphysema Qualifiers: Emphysema type: unspecified Qualified Code(s): J43.9 - Emphysema, unspecified Is this a current diagnosis for this admission?: Yes (7) Pneumonia due to infectious organism Qualifiers: Laterality: left Lung location: lower lobe of lung Qualified Code(s): J18.1 - Lobar pneumonia, unspecified organism Is this a current diagnosis for this admission?: Yes
[2016-09-22] MEDS: SIMVASTATIN 10 MG TABLET PO SCH (21:24)
[2016-09-22] MEDS: TEMAZEPAM 15 MG CAPSULE PO PRN (21:25)
[2016-09-23] MEDS: BENZONATATE 100 MG CAPSULE PO SCH ×3 (06:34→21:30)
[2016-09-23] MEDS: LANSOPRAZOLE 30 MG TAB.RAP.DR PO SCH (06:34)
[2016-09-23] MEDS: AMPICILLIN SODIUM/SULBACTAM NA 3 GM in NORMAL SALINE 100 ML IV SCH ×2 (06:35→13:04)
[2016-09-23] MEDS: NORMAL SALINE 1000 ML 1,000 ML IV PRN (06:35)
[2016-09-23] MEDS: ENOXAPARIN SODIUM INJ 40 MG/0.4 ML DISP.SYRIN SUBCUT SCH (08:18)
[2016-09-23] MEDS: DIPHENOXYLATE HCL/ATROP SULF 2.5-0.025 MG TABLET PO SCH ×4 (09:00→21:30)
[2016-09-23] MEDS: VENLAFAXINE HCL 75 MG TABLET PO SCH ×2 (09:00→21:30)
[2016-09-23] MEDS: DOCUSATE SODIUM 100 MG CAPSULE PO SCH (09:09)
[2016-09-23] MEDS: NICOTINE 21 MG/24 HR PATCH.TD24 TD SCH (09:09)
[2016-09-23] MEDS: LORAZEPAM 0.5 MG TABLET PO PRN ×2 (13:10→21:37)
--- NOTE | 2016-09-23 17:39 | PDOC PROGRESS REPORT ---
Subjective Progress Note for:: 09/23/16 Subjective:: Patient reported improvement in her breathing. No significant coughing. No chest pain. No nausea, vomiting or abdominal pain. No reported fever or chills. Appetite and p.o intake remain fair. She remain on IV Unasyn coverage. Blood culture is no growth x 5 days. Physical Exam Vital Signs: Temp Pulse Resp BP Pulse Ox 97.7 F 87 18 123/57 L 92 09/23/16 15:17 09/23/16 15:17 09/23/16 15:17 09/23/16 15:17 09/23/16 15:17 Intake & Output 09/22/16 09/23/16 09/24/16 06:59 06:59 06:59 Intake Total 2310 1895 Balance 2310 1895 Weight 67.2 kg Physical Exam: General appearance: PRESENT: no acute distress - on supplemental oxygen via nasal canula at 6L/min, cooperative Head exam: PRESENT: atraumatic, normocephalic Eye exam: PRESENT: conjunctiva pink, EOMI, PERRLA. ABSENT: scleral icterus Ear exam: PRESENT: normal external ear exam Mouth exam: PRESENT: moist, tongue midline Neck exam: PRESENT: full ROM. ABSENT: carotid bruit, JVD, lymphadenopathy, thyromegaly Respiratory exam: PRESENT: crackles - minimal, scattered, decreased breath sounds - at lung bases, rhonchi - minimal Cardiovascular exam: PRESENT: RRR. ABSENT: diastolic murmur, rubs, systolic murmur GI/Abdominal exam: PRESENT: normal bowel sounds, soft. ABSENT: distended, guarding, mass, organomegaly, rebound, tenderness Extremities exam: PRESENT: full ROM Musculoskeletal exam: PRESENT: deformity - due to arthritis joint involvement Neurological exam: PRESENT: alert, awake, oriented to person, oriented to place , oriented to time, oriented to situation, CN II-XII grossly intact. ABSENT: motor sensory deficit Psychiatric exam: PRESENT: appropriate affect, normal mood. ABSENT: homicidal ideation, suicidal ideation Results Laboratory Results: 09/18/16 05:35 09/18/16 05:35 09/17/16 15:45 Blood Blood Culture - Final NO GROWTH IN 5 DAYS 09/17/16 14:32 Blood Blood Culture - Final NO GROWTH IN 5 DAYS Assessment & Plan - Diagnosis (1) Acute and chronic respiratory failure Qualifiers: Respiratory failure complication: hypoxia Qualified Code(s): J96.21 - Acute and chronic respiratory failure with hypoxia Is this a current diagnosis for this admission?: Yes (2) Probable sepsis Is this a current diagnosis for this admission?: Yes (3) Pneumonia due to infectious organism Qualifiers: Laterality: left Lung location: lower lobe of lung Qualified Code(s): J18.1 - Lobar pneumonia, unspecified organism Is this a current diagnosis for this admission?: YesPlan: D/C IV Unasyn coverage. Start on Augmentin 500/125 mg p.o tid with meals. Maintain on all other current medication management. (4) COPD (chronic obstructive pulmonary disease) with emphysema Qualifiers: Emphysema type: unspecified Qualified Code(s): J43.9 - Emphysema, unspecified Is this a current diagnosis for this admission?: YesPlan: See attending physician orders. (5) Small cell lung cancer Qualifiers: Laterality: left Qualified Code(s): C34.92 - Malignant neoplasm of unspecified part of left bronchus or lung Is this a current diagnosis for this admission?: YesPlan: See attending physician orders. (6) Diabetes mellitus type 2 in nonobese Is this a current diagnosis for this admission?: YesPlan: See attending physician orders. (7) Mixed anxiety and depressive disorder Is this a current diagnosis for this admission?: YesPlan: See attending physician orders. (8) GERD (gastroesophageal reflux disease) Qualifiers: Esophagitis presence: without esophagitis Qualified Code(s): K21.9 - Gastro-esophageal reflux disease without esophagitis Is this a current diagnosis for this admission?: YesPlan: See attending physician orders. (9) Osteoarthritis Qualifiers: Osteoarthritis location: multiple joints Osteoarthritis type: primary Qualified Code(s): M15.0 - Primary generalized (osteo)arthritis Is this a current diagnosis for this admission?: YesPlan: See attending physician orders. (10) Persistent insomnia Is this a current diagnosis for this admission?: YesPlan: See attending physician orders. - Time Time Spent with patient: 25-34 minutes Medications reviewed and adjusted accordingly: Yes Within: within 24 hours - Inpatient Certification Medical Necessity: Need Close Monitoring Due to Risk of Patient Decompensation, Need For IV Fluids, Need For Continuous Telemetry Monitoring, Need for IV Antibiotics, Risk of Complication if Not Cared For in Hospital Post Hospital Care: D/C Information Systems Planner Documentation - Plan Summary Plan Summary: See attending physician orders.
[2016-09-23] MEDS ORDERED: AMOXICILLIN TR/POT CLAVULANATE 500-125 MG TAB PO ONE (17:45)
[2016-09-23 20:11] LABS: ABSOLUTE EOSINOPHILS # (AUTO) 0.1 10^3/uL (0.0-0.6); ABSOLUTE LYMPHOCYTES (AUTO) 2.9 10^3/uL (0.5-4.7); ABSOLUTE MONOCYTES (AUTO) 1.1 10^3/uL (0.1-1.4); ABSOLUTE NEUT (AUTO) 4.5 10^3/uL (1.7-8.2); BASOPHILS % (AUTO) 0.4 % (0-2); EOSINOPHILS % (AUTO) 1.2 % (0-6); HEMATOCRIT 29.6 % (36.0-47.0); HEMOGLOBIN 10.2 g/dL (12.0-15.5); LYMPHOCYTES % (AUTO) 33.8 % (13-45); MEAN CORPUSCULAR HEMOGLOBIN 29.4 pg (27.0-33.4); MEAN CORPUSCULAR HGB CONC 34.5 g/dL (32.0-36.0); MEAN CORPUSCULAR VOLUME 85 fl (80-97); MONOCYTES % (AUTO) 12.7 % (3-13); RED BLOOD COUNT 3.48 10^6/uL (3.72-5.28); RED CELL DISTRIBUTION WIDTH 17.7 % (11.5-14.0); SEGMENTED NEUTROPHILS % (AUTO) 51.9 % (42-78); WHITE BLOOD COUNT 8.6 10^3/uL (4.0-10.5)
[2016-09-23 20:15] LABS: ANION GAP 7 (5-19); BLOOD UREA NITROGEN 7 mg/dL (7-20); CALCIUM 8.4 mg/dL (8.4-10.2); CARBON DIOXIDE 33 mmol/L (22-30); CHLORIDE 102 mmol/L (98-107); CREATININE RESULT 0.52 mg/dL (0.52-1.25); GLUCOSE 96 mg/dL (75-110); SODIUM 142.2 mmol/L (137-145)
[2016-09-23 20:23] LABS: POTASSIUM 2.8 mmol/L (3.6-5.0)
[2016-09-23] MEDS: SIMVASTATIN 10 MG TABLET PO SCH (21:30)
[2016-09-23] MEDS: TEMAZEPAM 15 MG CAPSULE PO PRN (21:37)
[2016-09-24] MEDS: LANSOPRAZOLE 30 MG TAB.RAP.DR PO SCH (06:33)
[2016-09-24] MEDS: BENZONATATE 100 MG CAPSULE PO SCH ×2 (06:33→13:40)
[2016-09-24] MEDS: ENOXAPARIN SODIUM INJ 40 MG/0.4 ML DISP.SYRIN SUBCUT SCH (08:11)
[2016-09-24] MEDS: VENLAFAXINE HCL 75 MG TABLET PO SCH (08:50)
[2016-09-24] MEDS: AMOXICILLIN TR/POT CLAVULANATE 500-125 MG TAB PO SCH ×3 (08:50→18:48)
[2016-09-24] MEDS: LORAZEPAM 0.5 MG TABLET PO PRN (08:56)
[2016-09-24] MEDS ORDERED: POTASSIUM CHLORIDE 10 MEQ TABLET.SA PO SCH (09:00)
[2016-09-24] MEDS: NICOTINE 21 MG/24 HR PATCH.TD24 TD SCH (09:28)
[2016-09-24] MEDS: DIPHENOXYLATE HCL/ATROP SULF 2.5-0.025 MG TABLET PO SCH ×3 (09:28→18:48)
[2016-09-24] MEDS: DOCUSATE SODIUM 100 MG CAPSULE PO SCH (09:28)
[2016-09-24] MEDS ORDERED: MAGNESIUM SULFATE/D5W 1 GM/100 ML RTUPB IV ONE (12:44)
[2016-09-24] MEDS ORDERED: POTASSIUM CHLORIDE 10 MEQ TABLET.SA PO PRN (13:00)
[2016-09-24] MEDS: MAGNESIUM SULFATE 1 GM/D5W 100 ML IV SCH ×2 (13:25→13:53)
[2016-09-24 14:33] LABS: ANION GAP 8 (5-19); BLOOD UREA NITROGEN 5 mg/dL (7-20); CALCIUM 8.4 mg/dL (8.4-10.2); CARBON DIOXIDE 31 mmol/L (22-30); CHLORIDE 101 mmol/L (98-107); CREATININE RESULT 0.58 mg/dL (0.52-1.25); GLUCOSE 106 mg/dL (75-110); POTASSIUM 3.6 mmol/L (3.6-5.0); SODIUM 139.6 mmol/L (137-145)
[2016-09-24] MEDS ORDERED: POTASSIUM CHLORIDE 10 MEQ TABLET.SA PO ONE (17:43)
--- NOTE | 2016-09-24 18:02 | PDOC DISCHARGE SUMMARY ---
General - Admit/Disc Date/PCP Admission Date/Primary Care Provider: 09/17/16 13:56 MARTÍN GONZÁLES MD Discharge Date: 09/24/16 - Discharge Diagnosis (1) Acute and chronic respiratory failure Is this a current diagnosis for this admission?: Yes (2) Probable sepsis Is this a current diagnosis for this admission?: Yes (3) Pneumonia due to infectious organism Is this a current diagnosis for this admission?: Yes (4) COPD (chronic obstructive pulmonary disease) with emphysema Is this a current diagnosis for this admission?: Yes (5) Small cell lung cancer Is this a current diagnosis for this admission?: Yes (6) Diabetes mellitus type 2 in nonobese Is this a current diagnosis for this admission?: Yes (7) Mixed anxiety and depressive disorder Is this a current diagnosis for this admission?: Yes (8) GERD (gastroesophageal reflux disease) Is this a current diagnosis for this admission?: Yes (9) Osteoarthritis Is this a current diagnosis for this admission?: Yes (10) Persistent insomnia Is this a current diagnosis for this admission?: Yes - Additional Information Resuscitation Status: Do Not Resuscitate - I had extensive discussion with patient regarding resuscitation status, at this time in full lucidity patient elect to be a DNR status. Spouse and assigned nurse at bedside when this discussion and decision was made. Discharge Diet: Diabetic Discharge Activity: Activity As Tolerated, Energy Conservation, Slowly Increase Activity Home Medications: Chlordiazepoxide/Clidinium Br [Librax Capsule] 1 cap PO ACHS 09/17/16 Ipratropium/Albuterol Sulfate [Duoneb 3 ml Ampul] 3 ml NEB RTQ6HP PRN 09/17/16 Lorazepam [Ativan 0.5 mg Tablet] 0.5 mg PO Q6HP PRN 09/17/16 Omeprazole 20 mg PO DAILYP PRN 09/17/16 Ondansetron HCl [Zofran 8 mg Tablet] 8 mg PO Q8 09/17/16 Pregabalin [Lyrica 75 mg Capsule] 75 mg PO Q6 09/17/16 Simvastatin [Zocor 20 mg Tablet] 20 mg PO QHS 09/17/16 Temazepam [Restoril] 30 mg PO HSP PRN 09/17/16 Venlafaxine HCl [Effexor 75 mg Tablet] 75 mg PO Q12 09/17/16 Amox Tr/Potassium Clavulanate [Augmentin "500" Tablet] 1 tab PO MEALS #15 tablet 09/24/16 Benzonatate [Tessalon Perles 100 mg Capsule] 100 mg PO Q8 #60 capsule 09/24/16 Nicotine [Nicoderm 21 mg/24 Hr Transderm Patch] 1 each TD DAILY #30 patch.td24 NS 09/24/16 History of Present Illness History of Present Illness: ROBSON RODRIGUEZ is a 66 year old female admitted to my service following presentation to Dr. Edi Sands office due to persistent hypoxemia. Patient do have history of small cell lung cancer on chemotherapy and possible upcoming radiation therapy. Patient was referred to Dr Sands by Dr Gonzáles, patient's medical oncologist, due to worsening difficulty with breathing. She is currently on supplemental oxygen via nasal canula on portable concentrator at home. Patient did admit to increased nonproductive coughing. she had a CTA chest completed at our facility on 09/16/2016 for evaluation of her shortness of breath with findings suggestive of left basilar air space disease process. No evidence of pulmonary embolism. Patient denied any definite fever but reported been cold all the time. No demonstrable chills. She denied any chest pain. No nausea or vomiting. No abdominal pain. Appetite and p.o intake remain minimal. Her oxygen saturation remain below 90 % despite increase in oxygen delivery at 6 Liters / minute via nasal canula. Hospital Course Hospital Course: Patient did respond to supplemental oxygen at 6L/min with improvement in her sensorium and level of oxygen saturation. Her blood and urine culture were both no growth after appropriate days of incubation. She was treated as a case of suspected gram negative organism pneumonia. She was of IV antibiotic therapy including Unasyn for 5 days and subsequently changed to oral Augmentin. She will be discharged home on Augmentin 500/125 mg p.o tid x 5 days. Her hospital course was further complicated with electrolyte derangement from poor p.o intake. Patient was in need of potassium chloride and Magnesium sulfate administration. Patient remain afebrile. No chest pain, nausea, vomiting or abdominal pain. She will be discharge home today with office follow up as instructed upon discharge. She will follow up with Dr. Gonzáles, medical oncologist, and Dr. Sands, manual arts teacher, as instructed upon discharge. Physical Exam Vital Signs: Temp Pulse Resp BP Pulse Ox 97.5 F 96 18 115/47 L 95 09/24/16 15:08 09/24/16 15:08 09/24/16 15:08 09/24/16 15:08 09/24/16 15:08 Intake & Output 09/23/16 09/24/16 09/25/16 06:59 06:59 06:59 Intake Total 1895 1682 Balance 1895 1682 Weight 67.2 kg 66.1 kg Physical Exam: General appearance: PRESENT: no acute distress - on supplemental oxygen via nasal canula at 6L/min, cooperative Head exam: PRESENT: atraumatic, normocephalic Eye exam: PRESENT: conjunctiva pink, EOMI, PERRLA. ABSENT: scleral icterus Ear exam: PRESENT: normal external ear exam Mouth exam: PRESENT: moist, tongue midline Neck exam: PRESENT: full ROM. ABSENT: carotid bruit, JVD, lymphadenopathy, thyromegaly Respiratory exam: PRESENT: crackles - minimal, scattered, decreased breath sounds - at lung bases, rhonchi - minimal Cardiovascular exam: PRESENT: RRR. ABSENT: diastolic murmur, rubs, systolic murmur GI/Abdominal exam: PRESENT: normal bowel sounds, soft. ABSENT: distended, guarding, mass, organomegaly, rebound, tenderness Extremities exam: PRESENT: full ROM Musculoskeletal exam: PRESENT: deformity - due to arthritis joint involvement Neurological exam: PRESENT: alert, awake, oriented to person, oriented to place , oriented to time, oriented to situation, CN II-XII grossly intact. ABSENT: motor sensory deficit Psychiatric exam: PRESENT: appropriate affect, normal mood. ABSENT: homicidal ideation, suicidal ideation Results Laboratory Results: 09/23/16 19:13 09/24/16 13:53 09/23/16 09/23/16 09/24/16 19:13 19:13 08:45 WBC 8.6 RBC 3.48 L Hgb 10.2 L Hct 29.6 L MCV 85 MCH 29.4 MCHC 34.5 RDW 17.7 H Plt Count 243 Seg Neutrophils % 51.9 Lymphocytes % 33.8 Monocytes % 12.7 Eosinophils % 1.2 Basophils % 0.4 Absolute Neutrophils 4.5 Absolute Lymphocytes 2.9 Absolute Monocytes 1.1 Absolute Eosinophils 0.1 Absolute Basophils 0.0 Sodium 142.2 Potassium 2.8 L* Chloride 102 Carbon Dioxide 33 H Anion Gap 7 BUN 7 Creatinine 0.52 Est GFR ( Amer) > 60 Est GFR (Non-Af Amer) > 60 Glucose 96 Calcium 8.4 Magnesium 1.3 L 09/24/16 13:53 WBC RBC Hgb Hct MCV MCH MCHC RDW Plt Count Seg Neutrophils % Lymphocytes % Monocytes % Eosinophils % Basophils % Absolute Neutrophils Absolute Lymphocytes Absolute Monocytes Absolute Eosinophils Absolute Basophils Sodium 139.6 Potassium 3.6 Chloride 101 Carbon Dioxide 31 H Anion Gap 8 BUN 5 L Creatinine 0.58 Est GFR ( Amer) > 60 Est GFR (Non-Af Amer) > 60 Glucose 106 Calcium 8.4 Magnesium Qualifiers [place] BEING DISCHARGED WITH ANY OF THE FOLLOWING DIAGNOSIS?: No Plan Discharge Plan: D/C home today to custody of her spouse. She will follow up in the office as instructed upon discharge. She will follow up with Dr. Gonzáles and Shavon as instructed upon discharge. Time Spent: Less than 30 Minutes - I had extensive discussion with patient at bedside regarding post hospitalization care plan and she as well as spouse at bedside expressed full understanding. All questions were adequately answered.
[2016-09-24 18:29] VITALS: BP 135/65
== END 2016-09-24 19:13 | disposition home or self-care (01) | DRG 189 ==
LOC: 3W 13:56
PROVIDERS: ADMIT Internal Medicine Geriatric Medicine; ATTEND Internal Medicine Geriatric Medicine
DX: J96.21 Acute and chronic respiratory failure with hypoxia (principal); A41.9 Sepsis, unspecified organism; J18.1 Lobar pneumonia, unspecified organism; C34.92 Malignant neoplasm of unspecified part of left bronchus or lung; Z66 Do not resuscitate; E78.5 Hyperlipidemia, unspecified; E11.9 Type 2 diabetes mellitus without complications; K21.9 Gastro-esophageal reflux disease without esophagitis; J43.9 Emphysema, unspecified; F41.8 Other specified anxiety disorders; M15.0 Primary generalized (osteo)arthritis; G47.00 Insomnia, unspecified; F17.210 Nicotine dependence, cigarettes, uncomplicated; Z99.81 Dependence on supplemental oxygen
CPT/HCPCS: 36415; 36600; 71275; 78815; 80048; 80053; 81001; 82803; 82962; 83735; 85025; 85610; 85730; 87040; 87086; 87493; A9552; J0295; J1650; J3475; J3490; J7030

== ENCOUNTER → 2016-11-17 | Outpatient (CLI) | payer MEDICARE, OTHER | LOC: RAD 18:14 | PROVIDERS: ATTEND Internal Medicine Medical Oncology | DX: C34.92 Malignant neoplasm of unspecified part of left bronchus or lung (principal) | CPT/HCPCS: 78815; A9552 ==

== ENCOUNTER 2017-01-06 09:28 | Inpatient (IN) | payer MEDICARE, OTHER ==
--- NOTE | 2017-01-06 10:05 | RADIOLOGY REPORT (SQ) ---
EXAM DESCRIPTION: CHEST SINGLE VIEW COMPLETED DATE/TIME: 01/06/2017 9:55 am REASON FOR STUDY: hypoxemia, h xlung ca COMPARISON: 07/19/2016 EXAM PARAMETERS: NUMBER OF VIEWS: One view. TECHNIQUE: Single frontal radiographic view of the chest acquired. RADIATION DOSE: NA LIMITATIONS: None. FINDINGS: LUNGS AND PLEURA: Interstitial markings are prominent suspicion the left base. Fullness i n the left hilum remains but is improved when compared to prior study. PICC line is in place. Rosamaria ter tip overlies the SVC right atrial junction. MEDIASTINUM AND HILAR STRUCTURES: There is fullness in the right hilum. Some of this may be due to p atient rotation. Underlying right-sided adenopathy is suspected as well. This was demonstrated on C T of the chest done in August. HEART AND VASCULAR STRUCTURES: Stable in appearance. BONES: No acute findings. HARDWARE: None in the chest. OTHER: No other significant finding. IMPRESSION: Right hilar adenopathy. Left basilar interstitial airspace disease most likely chronic. PICC line is in place. TECHNICAL DOCUMENTATION: JOB ID: [id number]
[2017-01-06] MEDS ORDERED: IPRATROPIUM/ALBUTEROL 0.5-2.5 MG/3 ML AMPUL NEB ONE (10:08)
[2017-01-06 10:38] LABS: HEMATOCRIT 27.4 % (36.0-47.0); HEMOGLOBIN 9.1 g/dL (12.0-15.5); HGB HCT DIFFERENCE -0.1; MEAN CORPUSCULAR HEMOGLOBIN 31.6 pg (27.0-33.4); MEAN CORPUSCULAR HGB CONC 33.3 g/dL (32.0-36.0); MEAN CORPUSCULAR VOLUME 95 fl (80-97); RED BLOOD COUNT 2.89 10^6/uL (3.72-5.28); RED CELL DISTRIBUTION WIDTH 15.9 % (11.5-14.0)
[2017-01-06 10:44] LABS: VENOUS BLOOD BASE EXCESS -2.1 mmol/L; VENOUS BLOOD HCO3 21.1 mmol/L (20-32); VENOUS BLOOD PCO2 31.2 mmHg (35-63); VENOUS BLOOD PH 7.45 (7.30-7.42)
[2017-01-06 10:45] LABS: PROTHROMBIN TIME 14.2 SEC (11.4-15.4)
[2017-01-06] MEDS ORDERED: LEVOFLOXACIN 750 MG/D5W RTU 150 ML IV ONE (10:53)
[2017-01-06 10:59] LABS: ALANINE AMINOTRANSFERASE 21 U/L (9-52); ALBUMIN 3.3 g/dL (3.5-5.0); ALKALINE PHOSPHATASE 91 U/L (38-126); ANION GAP 10 (5-19); ASPARTATE AMINO TRANSFERASE 15 U/L (14-36); BILIRUBIN,DIRECT 0.3 mg/dL (0.0-0.4); BILIRUBIN,TOTAL 0.7 mg/dL (0.2-1.3); BLOOD UREA NITROGEN 17 mg/dL (7-20); CALCIUM 8.3 mg/dL (8.4-10.2); CARBON DIOXIDE 21 mmol/L (22-30); CHLORIDE 111 mmol/L (98-107); CREATININE RESULT 0.64 mg/dL (0.52-1.25); GLUCOSE 87 mg/dL (75-110); POTASSIUM 3.4 mmol/L (3.6-5.0); SODIUM 142.2 mmol/L (137-145); TOTAL PROTEIN 6.3 g/dL (6.3-8.2)
[2017-01-06 11:05] LABS: BASOPHILS % (MANUAL) 0 % (0-2); EOSINOPHILS % (MANUAL) 2 % (0-6); LYMPHOCYTES % (MANUAL) 42 % (13-45); TOTAL CELLS COUNTED 50
[2017-01-06 11:08] LABS: ANISOCYTOSIS SLIGHT; OVALOCYTES SLIGHT; POIKILOCYTOSIS SLIGHT; POLYCHROMASIA SLIGHT
--- NOTE | 2017-01-06 12:54 | ER Document Report ---
ED General - General Chief Complaint: Respiratory Distress Stated Complaint: RESPIRATORY DISTRESS Time Seen by Provider: 01/06/17 09:30 Mode of Arrival: Medic Information source: Patient Notes: 56-year-old female history of small cell lung carcinoma presents with complaints of shortness of breath. Patient is normally on 4 L nasal cannula, satting she states in the 60s chronically, over the past 3 days her O2 sats have been in the 40s which has been confirmed by EMS. Patient brought emergently to the ED for evaluation TRAVEL OUTSIDE OF THE [place] IN LAST 30 DAYS: No - HPI Onset: Other Onset/Duration: Persistent Quality of pain: No pain Severity: Severe Pain Level: Denies Associated symptoms: Shortness of breath Exacerbated by: Denies Relieved by: Denies Similar symptoms previously: Yes Recently seen / treated by doctor: Yes - Related Data Allergies/Adverse Reactions: codeine [Codeine] Adverse Reaction (Unknown, Verified 10/24/15 10:31) Dizziness Past Medical History - Social History Smoking Status: Current Every Day Smoker Cigarette use (# per day): Yes Chew tobacco use (# tins/day): No Smoking Education Provided: Yes - Patient counselled regarding cessation for 4 minutes Family History: None - Past Medical History Cardiac Medical History: Reports: Hx Hypercholesterolemia Denies: Hx Coronary Artery Disease, Hx Heart Attack, Hx Hypertension Pulmonary Medical History: Reports: Hx Asthma - medicated prn/no hospitalizations, Hx COPD - 2l Denies: Hx Bronchitis, Hx Pneumonia Neurological Medical History: Denies: Hx Cerebrovascular Accident, Hx Seizures Endocrine Medical History: Reports: Hx Diabetes Mellitus Type 2 GI Medical History: Reports: Hx Gastroesophageal Reflux Disease. Denies: Hx Hepatitis, Hx Hiatal Hernia, Hx Ulcer Musculoskeltal Medical History: Reports Hx Arthritis Psychiatric Medical History: Reports: Hx Depression Infectious Medical History: Denies: Hx Hepatitis Past Surgical History: Reports: Hx Section, Hx Hysterectomy. Denies: Hx Mastectomy, Hx Open Heart Surgery, Hx Pacemaker. Comment Only: Hx Orthopedic Surgery - bilateral knee - Immunizations Immunizations up to date: Yes Hx Diphtheria, Pertussis, Tetanus Vaccination: Yes Hx Pneumococcal Vaccination: 12/19/13 Review of Systems - Review of Systems Notes: REVIEW OF SYSTEMS: CONSTITUTIONAL : Denies fever, chills, or sweats. Denies recent illness. EENT: Denies eye, ear, throat, or mouth pain or symptoms. Denies nasal or sinus congestion or discharge. Denies throat, tongue, or mouth swelling or difficulty swallowing. CARDIOVASCULAR: Denies chest pain. Denies palpitations or racing or irregular heart beat. Denies ankle edema. RESPIRATORY: Admits to shortness of breath GASTROINTESTINAL: Denies abdominal pain or distention. Denies nausea, vomiting , or diarrhea. Denies blood in vomitus, stools, or per rectum. Denies black, tarry stools. Denies constipation. GENITOURINARY: Denies difficulty urinating, painful urination, burning, frequency, blood in urine, or discharge. FEMALE GENITOURINARY: Denies vaginal bleeding, heavy or abnormal periods, irregular periods. Denies vaginal discharge or odor. MUSCULOSKELETAL: Denies back or neck pain or stiffness. Denies joint pain or swelling. SKIN: Denies rash, lesions or sores. HEMATOLOGIC : Denies easy bruising or bleeding. LYMPHATIC: Denies swollen, enlarged glands. NEUROLOGICAL: Denies confusion or altered mental status. Denies passing out or loss of consciousness. Denies dizziness or lightheadedness. Denies headache. Denies weakness or paralysis or loss of use of either side. Denies problems with gait or speech. Denies sensory loss, numbness, or tingling. Denies seizures. PSYCHIATRIC: Denies anxiety or stress. Denies depression, suicidal ideation, or homicidal ideation. ALL OTHER SYSTEMS REVIEWED AND NEGATIVE. PHYSICAL EXAMINATION: GENERAL: Well-appearing, well-nourished and in no acute distress. HEAD: Atraumatic, normocephalic. EYES: Pupils equal round and reactive to light, extraocular movements intact, conjunctiva are normal. ENT: Nares patent, oropharynx clear without exudates. Moist mucous membranes. NECK: Normal range of motion, supple without lymphadenopathy LUNGS: Coarse wheezing HEART: Regular rate and rhythm without murmurs ABDOMEN: Soft, nontender, nondistended abdomen. No guarding, no rebound. No masses appreciated. Female : deferred Musculoskeletal: Normal range of motion, no pitting or edema. No cyanosis. NEUROLOGICAL: Cranial nerves grossly intact. Normal speech, normal gait. Normal sensory, motor exams PSYCH: Normal mood, normal affect. SKIN: Warm, Dry, normal turgor, no rashes or lesions noted. Dictation was performed using [employer] recognition software Physical Exam - Vital signs Vitals: Resp Pulse Ox 26 H 98 06/19/17 09:31 01/06/17 09:31 Course - Re-evaluation Re-evalutation: 01/06/17 13:15 Dr anil staley 01/06/17 13:35 Dr Tirado office called admit to his service 01/06/17 15:58 56-year-old female history of chemotherapy with a an immunosuppressed white count of 1. now presents with complaints of feeling short of breath. Patient was found to be hypoxic immediately placed on BiPAP on arrival to the emergency department. Chest x-ray noted no significant abnormality however given her white count and chronic changes of the lungs I will treat her for pneumonia patient will be admitted to her primary care physician - Vital Signs Vital signs: Temp Pulse Resp BP Pulse Ox 98.9 F 25 H 97 01/06/17 10:00 01/06/17 12:50 01/06/17 12:50 - Laboratory Result Diagrams: 01/06/17 10:15 01/06/17 10:15 Laboratory results interpreted by me: 01/06/17 01/06/17 01/06/17 10:15 10:15 10:15 WBC 1.0 L* RBC 2.89 L Hgb 9.1 L Hct 27.4 L RDW 15.9 H Plt Count 48 L Abs Neuts (Manual) 0.4 L Abs Lymphs (Manual) 0.4 L VBG pH 7.45 H VBG pCO2 31.2 L Potassium 3.4 L Chloride 111 H Carbon Dioxide 21 L Calcium 8.3 L Albumin 3.3 L - Diagnostic Test Radiology reviewed: Image reviewed, Reports reviewed - Pneumonia Discharge - Discharge Clinical Impression: Hypoxemia, Immunosuppressed due to chemotherapy Acute and chronic respiratory failure Qualifiers: Respiratory failure complication: hypoxia Qualified Code(s): J96.21 - Acute and chronic respiratory failure with hypoxia Small cell lung cancer Qualifiers: Laterality: right Qualified Code(s): C34.91 - Malignant neoplasm of unspecified part of right bronchus or lung Condition: Serious Disposition: ADMITTED INPATIENT Admitting Provider: Anil Unit Admitted: [facility]
--- NOTE | 2017-01-06 14:07 | RADIOLOGY REPORT (SQ) ---
EXAM DESCRIPTION: CTA CHEST COMPLETED DATE/TIME: 01/06/2017 1:53 pm REASON FOR STUDY: sob COMPARISON: 09/16/2016 TECHNIQUE: CT scan of the chest performed using helical scanning technique with dynamic intravenous contrast injection. Images reviewed with lung, soft tissue and bone windows. Reconstructed coronal and sagittal MPR images reviewed. Additional 3 dimensional post-processing performed to develop Maximal Intensity Projection images (PR P). All images stored on PACS. All CT scanners at this facility use dose modulation, iterative reconstruction, and/or weight based d osing when appropriate to reduce radiation dose to as low as reasonably achievable (ALARA). [facility]: Dose Right [facility]: CareDose [facility]: Dose Right [facility]: Teradose 4D [facility]: [email or web address] CONTRAST TYPE AND DOSE: contrast/concentration: Isovue 370.00 mg/ml; Total Contrast Delivered: 64.0 ml; Total Saline Delivered: 100.0 ml RENAL FUNCTION: BUN 17, creatinine 0.64 RADIATION DOSE: Up-to-date CT equipment and radiation dose reduction techniques were employed. CTDIv ol: 13.2 - 15.2 mGy. DLP: 547 mGy-cm. . LIMITATIONS: None. FINDINGS: LUNGS AND PLEURA: There are stable bilateral chronic interstitial changes. A focal pleura l-based nodule in the posterior aspect of the superior segment of the right lower lobe adjacent to th e fissure is slightly increased in size. It measures 13.2 mm in greatest dimensions on today's study . AORTA AND GREAT VESSELS: No aneurysm or dissection. HEART: No pericardial effusion. PULMONARY ARTERIES: No emboli visualized in the main pulmonary arteries or the segmental branches. HILAR AND MEDIASTINAL STRUCTURES: There is persistent mediastinal and hilar adenopathy although this is improved. HARDWARE: A PICC line is in place. UPPER ABDOMEN: Stable in appearance. THYROID AND OTHER SOFT TISSUES: No masses. No adenopathy. BONES: No acute or significant finding. 3D MIPS: Confirm above findings. OTHER: No other significant finding. IMPRESSION: 1. No pulmonary emboli. 2. Chronic bilateral pleural and parenchymal changes. 3. 13.2 mm pleural-based nodule in the superior segment of the right lower lobe slightly increased i n size when compared to prior study. 4. Mediastinal hilar adenopathy is significantly improved from prior study. TECHNICAL DOCUMENTATION: JOB ID: [id number] Quality ID # [id number]: Final reports with documentation of one or more dose reduction techniques (e.g., Au tomated exposure control, adjustment of the mA and/or kV according to patient size, use of iterative reconstruction technique) 2010 [employer]- All Rights Reserved
[2017-01-06 15:22] LABS: APPEARANCE,URINE CLEAR; BILIRUBIN,URINE NEGATIVE (NEGATIVE); GLUCOSE, URINE NEGATIVE (NEGATIVE); KETONES,URINE NEGATIVE (NEGATIVE); LEUKOCYTE ESTERASE,URINE NEGATIVE (NEGATIVE); NITRITE,URINE NEGATIVE (NEGATIVE); PROTEIN,URINE NEGATIVE (NEGATIVE); URINE SPECIFIC GRAVITY 1.042; UROBILINOGEN,URINE NEGATIVE mg/dL (<2.0)
--- NOTE | 2017-01-06 17:55 | EKG REPORT ---
SEVERITY:- ABNORMAL ECG - SINUS TACHYCARDIA MULTIPLE ATRIAL PREMATURE COMPLEXES BORDERLINE T ABNORMALITIES, DIFFUSE LEADS : Confirmed by: Neida Somers MD 06-Jan-2017 17:55:13
--- NOTE | 2017-01-06 20:22 | PDOC H&P ---
History of Present Illness Admission Date/PCP: 01/06/17 13:10 BREANNA CARLOS Patient complains of: Difficultry with breathing and persistent hypoxemia History of Present Illness: ROBSON RODRIGUEZ is a 66 year old female known to my practice who was brought the the E by EMS personnel following activation as instructed by her casino host Dr Sands. Patient and spouse reported development of increase difficulty with breathing more than usual this morning with her oxygen saturation in the 40% range. She subsequently called Dr Sands's office and firmed instructed to call 911. EMS staff reported persistent hypoxemia despite supplemental oxygen administration and this was confirmed by her vitals upon arrival at the ED. She was initially managed with BiPAP support with some improvement. Her chest X ray was none revealing necessitating chest CAT scan. She had chemotherapy for her metastatic lung cancer about 2 weeks ago. She is schedule for PET scan evaluation in the coming week. She denied any fever or chills. No significant coughing. No chest pain. No nausea or vomiting. Her appetite and P.O intake have been chronically poor. Her comorbidities include diet controlled Diabetes mellitus type 2, Hyperlipidemia, COPD, Asthma, Lung Cancer, GERD, Osteoarthritis, and Depression. She continue to smoke about 05/22 PPD. Past Medical History Cardiac Medical History: Reports: Hyperlipidema Denies: Coronary Artery Disease, Myocardial Infarction, Hypertension Pulmonary Medical History: Reports: Asthma - medicated prn/no hospitalizations, Chronic Obstructive Pulmonary Disease (COPD) - 2l Denies: Bronchitis, Pneumonia Neurological Medical History: Denies: Seizures Endocrine Medical History: Reports: Diabetes Mellitus Type 2 GI Medical History: Reports: Gastroesophageal Reflux Disease Denies: Hepatitis, Hiatal Hernia Musculoskeltal Medical History: Reports: Arthritis Psychiatric Medical History: Reports: Depression Hematology: Denies: Anemia, Sickle Cell Disease Past Surgical History Past Surgical History: Reports: Section, Hysterectomy Denies: Amputation, Mastectomy, Pacemaker Comment Only: Orthopedic Surgery - bilateral knee Social History Smoking Status: Current Every Day Smoker Frequency of Alcohol Use: None Hx Recreational Drug Use: No Drugs: None Hx Prescription Drug Abuse: No - Advance Directive Resuscitation Status: Do Not Resuscitate - I had extensive discussion with patient and spouse at bedside. She will manitain a DNR status. Family History Family History: None Parental Family History Reviewed: Yes Children Family History Reviewed: Yes Sibling(s) Family History Reviewed.: Yes Medication/Allergy Home Medications: Budesonide [Pulmicort Neb 0.5 mg/2 ml Ampul] 0.5 mg NEB RTDAILY 01/06/17 Clotrimazole [Mycelex 10 Mg Marlin] 10 mg MM 5XD 01/06/17 Ergocalciferol (Vitamin D2) [Drisdol 50,000 Unit (1.25MG) Capsule] 50,000 unit PO MO@1000 01/06/17 Esomeprazole Magnesium [Nexium] 40 mg PO Q6AM 01/06/17 Ipratropium/Albuterol Sulfate [Duoneb 3 ml Ampul] 3 ml NEB RTQ6 01/06/17 Lorazepam [Ativan 0.5 mg Tablet] 0.5 mg PO Q6HP PRN 01/06/17 Naloxegol Oxalate [Movantik 25 mg Tablet] 25 mg PO DAILY 01/06/17 Nicotine [Nicoderm 21 mg/24 Hr Transderm Patch] 1 patch TD DAILY 01/06/17 Oxycodone HCl/Acetaminophen [Percocet 10-325 Mg Tablet] 1 tab PO Q12HP PRN 01/06 Pregabalin [Lyrica 75 mg Capsule] 75 mg PO BID 01/06/17 Pregabalin [Lyrica 75 mg Capsule] 150 mg PO QHS 01/06/17 Prochlorperazine Maleate [Compazine 10 mg Tablet] 10 mg PO Q6HP PRN 01/06/17 Simvastatin [Zocor 20 mg Tablet] 20 mg PO QHS 01/06/17 Temazepam [Restoril] 30 mg PO QHS 01/06/17 Venlafaxine HCl [Effexor 75 mg Tablet] 75 mg PO Q12 01/06/17 Allergies/Adverse Reactions: codeine [Codeine] Adverse Reaction (Unknown, Verified 10/24/15 10:31) Dizziness Review of Systems Constitutional: ABSENT: chills, fever(s), headache(s), weight gain, weight loss Eyes: ABSENT: visual disturbances Ears: ABSENT: hearing changes Nose, Mouth, and Throat: ABSENT: as per HPI, headache(s), mouth pain, sore throat, vertigo, other Cardiovascular: PRESENT: dyspnea on exertion. ABSENT: as per HPI, chest pain, edema, orthropnea, palpitations, other Respiratory: PRESENT: dyspnea. ABSENT: as per HPI, cough, hemoptysis, sputum, other Gastrointestinal: ABSENT: abdominal pain, constipation, diarrhea, hematemesis, hematochezia, nausea, vomiting Genitourinary: ABSENT: dysuria, hematuria Musculoskeletal: ABSENT: joint swelling Integumentary: ABSENT: rash, wounds Neurological: ABSENT: abnormal gait, abnormal speech, confusion, dizziness, focal weakness, syncope Psychiatric: ABSENT: anxiety, depression, homidical ideation, suicidal ideation Endocrine: ABSENT: cold intolerance, heat intolerance, menstrual abnormalities, polydipsia, polyuria Hematologic/Lymphatic: ABSENT: easy bleeding, easy bruising, lymphadenopathy Physical Exam Vital Signs: Temp Pulse Resp BP Pulse Ox 98.9 F 26 H 109/74 94 01/06/17 10:00 01/06/17 17:01 01/06/17 17:01 01/06/17 17:01 General appearance: PRESENT: severe distress - on supplemental oxygen via nasal canula. Patient reported intoleranxce of BiPAP usage. Head exam: PRESENT: atraumatic, normocephalic Eye exam: PRESENT: conjunctiva pink, EOMI, PERRLA. ABSENT: scleral icterus Ear exam: PRESENT: normal external ear exam Mouth exam: PRESENT: moist, tongue midline Throat exam: ABSENT: post pharyngeal erythema, tonsillar erythema, tonsillar exudate, tonsillogmegaly, other Neck exam: ABSENT: carotid bruit, full ROM, JVD, lymphadenopathy, meningismus, tenderness, thyromegaly, tracheal deviation, tracheostomy, other Respiratory exam: PRESENT: crackles, decreased breath sounds, prolonged expiratory phas, rhonchi Cardiovascular exam: PRESENT: tachycardia. ABSENT: bradycardia, clicks, diastolic murmur, gallop, irregular rhythm, RRR, rubs, +S1, +S2, systolic murmur , other Pulses: PRESENT: normal dorsalis pedis pul, +2 pedal pulses bilateral Vascular exam: PRESENT: normal capillary refill GI/Abdominal exam: PRESENT: normal bowel sounds, soft. ABSENT: distended, guarding, mass, organolmegaly, rebound, tenderness Rectal exam: PRESENT: deferred Extremities exam: ABSENT: pedal edema Musculoskeletal exam: PRESENT: normal inspection Neurological exam: PRESENT: alert, awake, oriented to person, oriented to place , oriented to time, oriented to situation, CN II-XII grossly intact. ABSENT: motor sensory deficit Psychiatric exam: PRESENT: appropriate affect, normal mood. ABSENT: homicidal ideation, suicidal ideation Skin exam: PRESENT: dry, intact, warm. ABSENT: cyanosis, rash Results Laboratory Results: I reviewed her laboratory results on [employer] and these formed a significant part of my medical decision making on this case. 01/06/17 01/06/17 14:40 15:05 Lactic Acid 4.0 H Urine Color YELLOW Urine Appearance CLEAR Urine pH 6.0 Ur Specific [place] 1.042 Urine Protein NEGATIVE Urine Glucose (UA) NEGATIVE Urine Ketones NEGATIVE Urine Blood NEGATIVE Urine Nitrite NEGATIVE Ur Leukocyte Esterase NEGATIVE Urine WBC (Auto) 2 Urine RBC (Auto) 0 Impressions: Chest X-Ray 01/06/17 09:31 IMPRESSION: Right hilar adenopathy. Left basilar interstitial airspace disease most likely chronic. PICC line is in place. Chest/Abdomen CTA 01/06/17 12:52 IMPRESSION: 1. No pulmonary emboli. 2. Chronic bilateral pleural and parenchymal changes. 3. 13.2 mm pleural-based nodule in the superior segment of the right lower lobe slightly increased in size when compared to prior study. 4. Mediastinal hilar adenopathy is significantly improved from prior study. Assessment & Plan - Diagnosis (1) SIRS (systemic inflammatory response syndrome) Is this a current diagnosis for this admission?: YesPlan: See admitting physician orders. (2) Acute and chronic respiratory failure Qualifiers: Respiratory failure complication: hypoxia Qualified Code(s): J96.21 - Acute and chronic respiratory failure with hypoxia Is this a current diagnosis for this admission?: YesPlan: See admitting physician orders. (3) Immunosuppressed due to chemotherapy Is this a current diagnosis for this admission?: YesPlan: See admitting physician orders. (4) Pneumonia due to infectious organism Qualifiers: Laterality: left Lung location: lower lobe of lung Qualified Code(s): J18.1 - Lobar pneumonia, unspecified organism Is this a current diagnosis for this admission?: YesPlan: See admitting physician orders. (5) Small cell lung cancer Qualifiers: Laterality: right Qualified Code(s): C34.91 - Malignant neoplasm of unspecified part of right bronchus or lung Is this a current diagnosis for this admission?: YesPlan: See admitting physician orders. (6) Diabetes mellitus type 2 in nonobese Is this a current diagnosis for this admission?: YesPlan: See admitting physician orders. (7) GERD (gastroesophageal reflux disease) Qualifiers: Esophagitis presence: without esophagitis Qualified Code(s): K21.9 - Gastro-esophageal reflux disease without esophagitis Is this a current diagnosis for this admission?: YesPlan: See admitting physician orders. (8) Mixed anxiety and depressive disorder Is this a current diagnosis for this admission?: YesPlan: See admitting physician orders. (9) Osteoarthritis Qualifiers: Osteoarthritis location: multiple joints Osteoarthritis type: primary Qualified Code(s): M15.0 - Primary generalized (osteo)arthritis Is this a current diagnosis for this admission?: YesPlan: See admitting physician orders. (10) Tobacco dependence Is this a current diagnosis for this admission?: YesPlan: See admitting physician orders. - Time Time Spent: Greater than 70 Minutes Smoking Cessation Education: 3 to 10 minutes - At bedside but patient did not express any interest in cessation with statement that she already have the cancer and will continue to smoke her cigarette. Medications reviewed and adjusted accordingly: Yes Anticipated discharge: Home Within: Other - Inpatient Certification Medical Necessity: Need Close Monitoring Due to Risk of Patient Decompensation, Need For IV Fluids, Need For Continuous Telemetry Monitoring, Need for Nebulizer Therapy and Monitoring of Response, Need for Pain Control, Need for IV Antibiotics, Risk of Complication if Not Cared For in Hospital Post Hospital Care: D/C Global Log[employer] Manager Documentation - Plan Summary Plan Summary: See admitting physician orders.
[2017-01-06] MEDS ORDERED: GUAIFENESIN SYRP 200 MG/10 ML UDC PO PRN (20:24)
[2017-01-06] MEDS ORDERED: PROCHLORPERAZINE MALEATE 10 MG TABLET PO PRN (20:33)
[2017-01-06] MEDS ORDERED: ACETAMINOPHEN 325 MG TABLET PO PRN (20:41)
[2017-01-06 21:20] LABS: PROTHROMBIN TIME 14.2 SEC (11.4-15.4)
[2017-01-06 21:21] LABS: PARTIAL THROMBOPLASTIN TIME 34.4 SEC (23.5-35.8)
[2017-01-06] MEDS ORDERED: ERGOCALCIFEROL (VITAMIN D2) 50000 UNIT (1.25 MG) CAPSULE PO ONE (22:00)
[2017-01-06] MEDS: VENLAFAXINE HCL 75 MG TABLET PO SCH (22:01)
[2017-01-07] MEDS: PREGABALIN 75 MG CAPSULE PO SCH ×4 (00:12→21:06)
[2017-01-07] MEDS: SIMVASTATIN 40 MG TABLET PO SCH ×2 (00:12→21:06)
[2017-01-07] MEDS: GUAIFENESIN 600 MG TABLET.SA PO SCH ×3 (00:13→21:07)
[2017-01-07] MEDS ORDERED: CEFEPIME 2 GM/D5W RTU 2 GM/50 ML RTUPB IV ONE (00:40)
[2017-01-07] MEDS ORDERED: FILGRASTIM INJ 480 MCG/1.6 ML VIAL ONE (00:41)
[2017-01-07] MEDS: NORMAL SALINE 1000 ML 1,000 ML IV PRN ×2 (01:22→16:21)
[2017-01-07] MEDS: CEFEPIME 2 GM/D5W RTU 50 ML IV SCH ×3 (01:22→21:07)
[2017-01-07] MEDS: FILGRASTIM INJ 480 MCG/1.6 ML VIAL SUBCUT SCH ×2 (01:22→21:06)
[2017-01-07] MEDS: LANSOPRAZOLE 30 MG TAB.RAP.DR PO SCH (05:36)
[2017-01-07 06:07] LABS: HEMATOCRIT 26.6 % (36.0-47.0); HEMOGLOBIN 8.9 g/dL (12.0-15.5); HGB HCT DIFFERENCE 0.1; MEAN CORPUSCULAR HEMOGLOBIN 31.9 pg (27.0-33.4); MEAN CORPUSCULAR HGB CONC 33.5 g/dL (32.0-36.0); MEAN CORPUSCULAR VOLUME 95 fl (80-97); RED BLOOD COUNT 2.79 10^6/uL (3.72-5.28); RED CELL DISTRIBUTION WIDTH 15.7 % (11.5-14.0); WHITE BLOOD COUNT 1.8 10^3/uL (4.0-10.5)
[2017-01-07 06:21] LABS: ALANINE AMINOTRANSFERASE 24 U/L (9-52); ALBUMIN 3.1 g/dL (3.5-5.0); ALKALINE PHOSPHATASE 77 U/L (38-126); ANION GAP 11 (5-19); ASPARTATE AMINO TRANSFERASE 15 U/L (14-36); BILIRUBIN,DIRECT 0.4 mg/dL (0.0-0.4); BILIRUBIN,TOTAL 0.7 mg/dL (0.2-1.3); BLOOD UREA NITROGEN 13 mg/dL (7-20); CARBON DIOXIDE 25 mmol/L (22-30); CHLORIDE 109 mmol/L (98-107); CREATININE RESULT 0.65 mg/dL (0.52-1.25); GLUCOSE 86 mg/dL (75-110); POTASSIUM 4.1 mmol/L (3.6-5.0); SODIUM 145.3 mmol/L (137-145); TOTAL PROTEIN 5.8 g/dL (6.3-8.2)
[2017-01-07 06:52] LABS: BASOPHILS % (MANUAL) 0 % (0-2); EOSINOPHILS % (MANUAL) 0 % (0-6); LYMPHOCYTES % (MANUAL) 38 % (13-45); TOTAL CELLS COUNTED 100
[2017-01-07 06:55] LABS: OVALOCYTES SLIGHT; POLYCHROMASIA SLIGHT; SCHISTOCYTES SLIGHT; TOXIC GRANULATION SLIGHT
[2017-01-07 06:56] LABS: TEAR DROP CELLS SLIGHT
--- NOTE | 2017-01-07 08:55 | PDOC PROGRESS REPORT ---
Subjective Progress Note for:: 01/07/17 Subjective:: Patient remain tachypneic and tachycardiac with efforts. She remain on supplemental oxygen at about 6L/min via nasal canula. She denied chest pain. No nausea or vomiting. No abdominal pain. Oral intake fair. No reported fever or chills. Physical Exam Vital Signs: Temp Pulse Resp BP Pulse Ox 98.3 F 124 H 22 H 127/76 H 86 L 01/07/17 08:16 01/07/17 08:16 01/07/17 08:16 01/07/17 08:16 01/07/17 08:16 Intake & Output 01/06/17 01/07/17 01/08/17 06:59 06:59 06:59 Intake Total 329 Balance 329 Weight 65.317 kg General appearance: PRESENT: severe distress - post use of in room toilet Head exam: PRESENT: atraumatic, normocephalic Eye exam: PRESENT: conjunctiva pink, EOMI, PERRLA. ABSENT: scleral icterus Respiratory exam: PRESENT: accessory muscle use, decreased breath sounds, prolonged expiratory phas, tachypnea Cardiovascular exam: PRESENT: tachycardia GI/Abdominal exam: PRESENT: normal bowel sounds, soft. ABSENT: distended, guarding, mass, organolmegaly, rebound, tenderness Extremities exam: ABSENT: pedal edema Musculoskeletal exam: PRESENT: normal inspection Neurological exam: PRESENT: alert, awake, oriented to person, oriented to place , oriented to time, oriented to situation, CN II-XII grossly intact. ABSENT: motor sensory deficit Psychiatric exam: PRESENT: appropriate affect, normal mood. ABSENT: homicidal ideation, suicidal ideation Skin exam: PRESENT: dry, intact, warm. ABSENT: cyanosis, rash Results Laboratory Results: 01/07/17 05:43 01/07/17 05:43 01/07/17 01/07/17 01/07/17 05:43 05:43 05:43 WBC 1.8 L RBC 2.79 L Hgb 8.9 L Hct 26.6 L MCV 95 MCH 31.9 MCHC 33.5 RDW 15.7 H Plt Count 37 L Seg Neutrophils % Not Reportable Lymphocytes % Not Reportable Monocytes % Not Reportable Eosinophils % Not Reportable Basophils % Not Reportable Absolute Neutrophils Not Reportable Absolute Lymphocytes Not Reportable Absolute Monocytes Not Reportable Absolute Eosinophils Not Reportable Absolute Basophils Not Reportable Sodium 145.3 H Potassium 4.1 Chloride 109 H Carbon Dioxide 25 Anion Gap 11 BUN 13 Creatinine 0.65 Est GFR ( Amer) > 60 Est GFR (Non-Af Amer) > 60 Glucose 86 Lactic Acid 1.6 Calcium 9.0 Total Bilirubin 0.7 AST 15 ALT 24 Alkaline Phosphatase 77 Total Protein 5.8 L Albumin 3.1 L Impressions: Chest X-Ray 01/06/17 09:31 IMPRESSION: Right hilar adenopathy. Left basilar interstitial airspace disease most likely chronic. PICC line is in place. Chest/Abdomen CTA 01/06/17 12:52 IMPRESSION: 1. No pulmonary emboli. 2. Chronic bilateral pleural and parenchymal changes. 3. 13.2 mm pleural-based nodule in the superior segment of the right lower lobe slightly increased in size when compared to prior study. 4. Mediastinal hilar adenopathy is significantly improved from prior study. Assessment & Plan - Diagnosis (1) SIRS (systemic inflammatory response syndrome) Is this a current diagnosis for this admission?: YesPlan: See attending physician orders. (2) Acute and chronic respiratory failure Qualifiers: Respiratory failure complication: hypoxia Qualified Code(s): J96.21 - Acute and chronic respiratory failure with hypoxia Is this a current diagnosis for this admission?: YesPlan: See attending physician orders (3) Immunosuppressed due to chemotherapy Is this a current diagnosis for this admission?: YesPlan: See attending physician orders Improving total WBC but PMN count remain less than 1000. Continue daily Neupogen administration. (4) Pneumonia due to infectious organism Qualifiers: Laterality: left Lung location: lower lobe of lung Qualified Code(s): J18.1 - Lobar pneumonia, unspecified organism Is this a current diagnosis for this admission?: YesPlan: See attending physician orders. Continue IV Cefepime and Levofloxacin coverage. (5) Small cell lung cancer Qualifiers: Laterality: right Qualified Code(s): C34.91 - Malignant neoplasm of unspecified part of right bronchus or lung Is this a current diagnosis for this admission?: YesPlan: See attending physician orders (6) Diabetes mellitus type 2 in nonobese Is this a current diagnosis for this admission?: YesPlan: See attending physician orders (7) GERD (gastroesophageal reflux disease) Qualifiers: Esophagitis presence: without esophagitis Qualified Code(s): K21.9 - Gastro-esophageal reflux disease without esophagitis Is this a current diagnosis for this admission?: YesPlan: See attending physician orders (8) Mixed anxiety and depressive disorder Is this a current diagnosis for this admission?: YesPlan: See attending physician orders (9) Osteoarthritis Qualifiers: Osteoarthritis location: multiple joints Osteoarthritis type: primary Qualified Code(s): M15.0 - Primary generalized (osteo)arthritis Is this a current diagnosis for this admission?: YesPlan: See attending physician orders (10) Tobacco dependence Is this a current diagnosis for this admission?: YesPlan: See attending physician orders - Time Time Spent with patient: 25-34 minutes Medications reviewed and adjusted accordingly: Yes Anticipated discharge: Home Within: Other - Inpatient Certification Medical Necessity: Need Close Monitoring Due to Risk of Patient Decompensation, Need For IV Fluids, Need For Continuous Telemetry Monitoring, Need for Nebulizer Therapy and Monitoring of Response, Need for IV Antibiotics, Risk of Complication if Not Cared For in Hospital Post Hospital Care: D/C Accountant Budget Documentation - Plan Summary Plan Summary: See attending physician orders.
[2017-01-07] MEDS: NICOTINE 21 MG/24 HR PATCH.TD24 TD SCH (09:42)
[2017-01-07] MEDS: VENLAFAXINE HCL 75 MG TABLET PO SCH ×2 (09:42→21:06)
[2017-01-07] MEDS: LEVOFLOXACIN 500 MG/D5W RTU 100 ML IV SCH (09:43)
--- NOTE | 2017-01-07 09:54 | PDOC CONSULTATION ---
Consultation Consult Date: 01/07/17 Attending physician:: BREANNA GONZALEZ Consult reason:: acute/chronic resp failure/lung cancer/pulmonary fibrosis History of Present Illness Admission Date/PCP: 01/06/17 20:22 BREANNA GONZALEZ History of Present Illness: 67-year-old female well-known to our service call the office and stated her saturation was 40% she was advised to send report to the emergency room [facility]. Respirations reaffirm by EMS as well as the emergency room, however chest x-ray had not changed significantly and she had this CTA did not PE plans increasing shortness of breath over the last 36-48 hours of nausea vomiting fevers chills. Inspite of her diagnosis of lung cancer she continues to smoke. Past Medical History Cardiac Medical History: Reports: Hyperlipidema Denies: Coronary Artery Disease, Myocardial Infarction, Hypertension Pulmonary Medical History: Reports: Asthma - medicated prn/no hospitalizations, Chronic Obstructive Pulmonary Disease (COPD) - 2l Denies: Bronchitis, Pneumonia Neurological Medical History: Denies: Seizures Endocrine Medical History: Reports: Diabetes Mellitus Type 2 GI Medical History: Reports: Gastroesophageal Reflux Disease Denies: Hepatitis, Hiatal Hernia Musculoskeltal Medical History: Reports: Arthritis Psychiatric Medical History: Reports: Depression Hematology: Denies: Anemia, Sickle Cell Disease Past Surgical History Past Surgical History: Reports: Section, Hysterectomy Denies: Amputation, Mastectomy, Pacemaker Comment Only: Orthopedic Surgery - bilateral knee Social History Information Source: Patient, [facility] Records Smoking Status: Current Every Day Smoker Cigarettes Packs Per Day: 1.5 Frequency of Alcohol Use: None Hx Recreational Drug Use: No Drugs: None Hx Prescription Drug Abuse: No Have you had any respiratory illnesses as a child?: No Have you been exposed to any sick contacts recently?: No Have you travelled outside of [place] in the past 12 months?: No - Advance Directive Resuscitation Status: Do Not Resuscitate - I had extensive discussion with patient and spouse at bedside. She will manitain a DNR status. Family History Family History: None Parental Family History Reviewed: Yes Children Family History Reviewed: Yes Sibling(s) Family History Reviewed.: Yes Medication/Allergy Home Medications: Budesonide [Pulmicort Neb 0.5 mg/2 ml Ampul] 0.5 mg NEB RTDAILY 01/06/17 Clotrimazole [Mycelex 10 mg Marlin] 10 mg MM 5XD 01/06/17 Ergocalciferol (Vitamin D2) [Drisdol 50,000 unit (1.25MG) Capsule] 50,000 unit PO MO@1000 01/06/17 Esomeprazole Magnesium [Nexium] 40 mg PO Q6AM 01/06/17 Ipratropium/Albuterol Sulfate [Duoneb 3 ml Ampul] 3 ml NEB RTQ6 01/06/17 Lorazepam [Ativan 0.5 mg Tablet] 0.5 mg PO Q6HP PRN 01/06/17 Naloxegol Oxalate [Movantik 25 mg Tablet] 25 mg PO DAILY 01/06/17 Nicotine [Nicoderm 21 mg/24 Hr Transderm Patch] 1 patch TD DAILY 01/06/17 Oxycodone HCl/Acetaminophen [Percocet 10-325 mg Tablet] 1 tab PO Q12HP PRN 01/06 Pregabalin [Lyrica 75 mg Capsule] 75 mg PO BID 01/06/17 Pregabalin [Lyrica 75 mg Capsule] 150 mg PO QHS 01/06/17 Prochlorperazine Maleate [Compazine 10 mg Tablet] 10 mg PO Q6HP PRN 01/06/17 Simvastatin [Zocor 20 mg Tablet] 20 mg PO QHS 01/06/17 Temazepam [Restoril] 30 mg PO QHS 01/06/17 Venlafaxine HCl [Effexor 75 mg Tablet] 75 mg PO Q12 01/06/17 Levofloxacin [Levaquin 500 mg Tablet] 500 mg PO DAILY #5 tablet 01/14/17 Allergies/Adverse Reactions: codeine [Codeine] Adverse Reaction (Unknown, Verified 10/24/15 10:31) Dizziness Physical Exam Vital Signs: Temp Pulse Resp BP Pulse Ox 97.9 F 120 H 20 114/60 61 L 01/07/17 04:00 01/07/17 07:00 01/07/17 04:00 01/07/17 03:57 01/07/17 04:00 Intake & Output 01/06/17 01/07/17 01/08/17 06:59 06:59 06:59 Intake Total 329 Balance 329 Weight 65.317 kg General appearance: PRESENT: mild distress, well-developed Head exam: PRESENT: atraumatic, normocephalic Eye exam: PRESENT: conjunctiva pale, EOMI Mouth exam: PRESENT: dry mucosa, neck supple Neck exam: ABSENT: carotid bruit, JVD, lymphadenopathy, thyromegaly Respiratory exam: PRESENT: decreased breath sounds, prolonged expiratory phas, rales, rhonchi, symmetrical Cardiovascular exam: PRESENT: RRR, +S1, +S2 Pulses: PRESENT: normal radial pulses GI/Abdominal exam: PRESENT: normal bowel sounds, soft. ABSENT: distended, guarding, mass, organolmegaly, rebound, tenderness Rectal exam: PRESENT: deferred Musculoskeletal exam: PRESENT: normal inspection Neurological exam: PRESENT: awake Skin exam: PRESENT: warm Results Laboratory Results: 01/07/17 05:43 01/07/17 05:43 01/07/17 01/07/17 01/07/17 05:43 05:43 05:43 WBC 1.8 L RBC 2.79 L Hgb 8.9 L Hct 26.6 L MCV 95 MCH 31.9 MCHC 33.5 RDW 15.7 H Plt Count 37 L Seg Neutrophils % Not Reportable Lymphocytes % Not Reportable Monocytes % Not Reportable Eosinophils % Not Reportable Basophils % Not Reportable Absolute Neutrophils Not Reportable Absolute Lymphocytes Not Reportable Absolute Monocytes Not Reportable Absolute Eosinophils Not Reportable Absolute Basophils Not Reportable Sodium 145.3 H Potassium 4.1 Chloride 109 H Carbon Dioxide 25 Anion Gap 11 BUN 13 Creatinine 0.65 Est GFR ( Amer) > 60 Est GFR (Non-Af Amer) > 60 Glucose 86 Lactic Acid 1.6 Calcium 9.0 Total Bilirubin 0.7 AST 15 ALT 24 Alkaline Phosphatase 77 Total Protein 5.8 L Albumin 3.1 L Impressions: Chest X-Ray 01/06/17 09:31 IMPRESSION: Right hilar adenopathy. Left basilar interstitial airspace disease most likely chronic. PICC line is in place. Chest/Abdomen CTA 01/06/17 12:52 IMPRESSION: 1. No pulmonary emboli. 2. Chronic bilateral pleural and parenchymal changes. 3. 13.2 mm pleural-based nodule in the superior segment of the right lower lobe slightly increased in size when compared to prior study. 4. Mediastinal hilar adenopathy is significantly improved from prior study. Assessment & Plan - Diagnosis (1) Pulmonary fibrosis determined by high resolution computed tomography Is this a current diagnosis for this admission?: YesPlan: peripheral honeycombing (2) Acute and chronic respiratory failure Qualifiers: Respiratory failure complication: hypoxia Qualified Code(s): J96.21 - Acute and chronic respiratory failure with hypoxia Is this a current diagnosis for this admission?: Yes (3) Small cell lung cancer Qualifiers: Laterality: right Qualified Code(s): C34.91 - Malignant neoplasm of unspecified part of right bronchus or lung Is this a current diagnosis for this admission?: YesPlan: s/p recent chemotherapy (4) Tobacco dependence Is this a current diagnosis for this admission?: YesPlan: sadly continues to smoke (5) COPD (chronic obstructive pulmonary disease) with emphysema Qualifiers: Emphysema type: unspecified Qualified Code(s): J43.9 - Emphysema, unspecified Is this a current diagnosis for this admission?: Yes
[2017-01-07 17:53] LABS: PATH REVIEW PATHOLOGIST REVIEWED
[2017-01-08] MEDS: LANSOPRAZOLE 30 MG TAB.RAP.DR PO SCH (05:34)
[2017-01-08] MEDS: PREGABALIN 75 MG CAPSULE PO SCH ×3 (05:34→21:50)
[2017-01-08 05:58] LABS: HEMATOCRIT 27.8 % (36.0-47.0); HEMOGLOBIN 9.3 g/dL (12.0-15.5); HGB HCT DIFFERENCE 0.1; MEAN CORPUSCULAR HGB CONC 33.4 g/dL (32.0-36.0); MEAN CORPUSCULAR VOLUME 96 fl (80-97); RED CELL DISTRIBUTION WIDTH 15.9 % (11.5-14.0)
[2017-01-08] MEDS: NORMAL SALINE 1000 ML 1,000 ML IV PRN ×2 (06:27→20:37)
[2017-01-08 06:37] LABS: WHITE BLOOD COUNT 3.9 10^3/uL (4.0-10.5)
[2017-01-08 06:45] LABS: BAND NEUTROPHILS % (MANUAL) 5 % (3-5); BASOPHILS % (MANUAL) 0 % (0-2); EOSINOPHILS % (MANUAL) 0 % (0-6); LYMPHOCYTES % (MANUAL) 13 % (13-45); TOTAL CELLS COUNTED 100
[2017-01-08 06:46] LABS: ANISOCYTOSIS SLIGHT; OVALOCYTES SLIGHT; POLYCHROMASIA SLIGHT
[2017-01-08] MEDS: GUAIFENESIN 600 MG TABLET.SA PO SCH ×2 (10:21→21:51)
[2017-01-08] MEDS: VENLAFAXINE HCL 75 MG TABLET PO SCH ×2 (10:27→21:50)
[2017-01-08] MEDS: NICOTINE 21 MG/24 HR PATCH.TD24 TD SCH (10:27)
[2017-01-08] MEDS: CEFEPIME 2 GM/D5W RTU 50 ML IV SCH ×2 (10:28→21:50)
[2017-01-08] MEDS: LEVOFLOXACIN 500 MG/D5W RTU 100 ML IV SCH (10:28)
[2017-01-08] MEDS ORDERED: LORAZEPAM 0.5 MG TABLET PO PRN (13:58)
--- NOTE | 2017-01-08 14:08 | PDOC PROGRESS REPORT ---
Subjective Progress Note for:: 01/08/17 Subjective:: Patient is more compliant with usage of BiPAP with her own face mask from home. Less tachypneic and tachycardiac on monitor. Oxygen saturation in satisfactory range. with efforts. She denied chest pain. No nausea or vomiting. No abdominal pain. Oral intake fair. No reported fever or chills. Interval supervisor production department recommendation discussed with her during this bedside evaluation. Physical Exam Vital Signs: Temp Pulse Resp BP Pulse Ox 97.9 F 131 H 19 118/64 82 L 01/08/17 12:17 01/08/17 12:17 01/08/17 12:17 01/08/17 12:17 01/08/17 12:17 Intake & Output 01/07/17 01/08/17 01/09/17 06:59 06:59 06:59 Intake Total 329 2215 Balance 329 2215 Weight 65.317 kg 65.3 kg Physical Exam: General appearance: PRESENT: severe distress - post use of in room toilet Head exam: PRESENT: atraumatic, normocephalic Eye exam: PRESENT: conjunctiva pink, EOMI, PERRLA. ABSENT: scleral icterus Respiratory exam: PRESENT: decreased breath sounds, prolonged expiratory phase Cardiovascular exam: PRESENT: tachycardia GI/Abdominal exam: PRESENT: normal bowel sounds, soft. ABSENT: distended, guarding, mass, organomegaly, rebound, tenderness Extremities exam: ABSENT: pedal edema Musculoskeletal exam: PRESENT: normal inspection Neurological exam: PRESENT: alert, awake, oriented to person, oriented to place , oriented to time, oriented to situation, CN II-XII grossly intact. ABSENT: motor sensory deficit Psychiatric exam: PRESENT: appropriate affect, normal mood. ABSENT: homicidal ideation, suicidal ideation Skin exam: PRESENT: dry, intact, warm. ABSENT: cyanosis, rash Results Laboratory Results: 01/08/17 05:40 01/07/17 05:43 01/08/17 05:40 WBC 3.9 L D RBC 2.90 L Hgb 9.3 L Hct 27.8 L MCV 96 MCH 32.0 MCHC 33.4 RDW 15.9 H Plt Count 33 L Seg Neutrophils % Not Reportable Lymphocytes % Not Reportable Monocytes % Not Reportable Eosinophils % Not Reportable Basophils % Not Reportable Absolute Neutrophils Not Reportable Absolute Lymphocytes Not Reportable Absolute Monocytes Not Reportable Absolute Eosinophils Not Reportable Absolute Basophils Not Reportable Impressions: Chest X-Ray 01/06/17 09:31 IMPRESSION: Right hilar adenopathy. Left basilar interstitial airspace disease most likely chronic. PICC line is in place. Chest/Abdomen CTA 01/06/17 12:52 IMPRESSION: 1. No pulmonary emboli. 2. Chronic bilateral pleural and parenchymal changes. 3. 13.2 mm pleural-based nodule in the superior segment of the right lower lobe slightly increased in size when compared to prior study. 4. Mediastinal hilar adenopathy is significantly improved from prior study. Assessment & Plan - Diagnosis (1) SIRS (systemic inflammatory response syndrome) Is this a current diagnosis for this admission?: YesPlan: See attending physician orders. (2) Acute and chronic respiratory failure Qualifiers: Respiratory failure complication: hypoxia Qualified Code(s): J96.21 - Acute and chronic respiratory failure with hypoxia Is this a current diagnosis for this admission?: YesPlan: See attending physician orders (3) Immunosuppressed due to chemotherapy Is this a current diagnosis for this admission?: YesPlan: See attending physician orders. Resolve neutropenia based on her current WBC with differential count. Continue Neupogen therapy for another day befre discontinuation. (4) Pneumonia due to infectious organism Qualifiers: Laterality: left Lung location: lower lobe of lung Qualified Code(s): J18.1 - Lobar pneumonia, unspecified organism Is this a current diagnosis for this admission?: YesPlan: See attending physician orders. Continue IV Cefepime and Levofloxacin coverage. (5) Small cell lung cancer Qualifiers: Laterality: right Qualified Code(s): C34.91 - Malignant neoplasm of unspecified part of right bronchus or lung Is this a current diagnosis for this admission?: YesPlan: See attending physician orders (6) Diabetes mellitus type 2 in nonobese Is this a current diagnosis for this admission?: YesPlan: See attending physician orders (7) GERD (gastroesophageal reflux disease) Qualifiers: Esophagitis presence: without esophagitis Qualified Code(s): K21.9 - Gastro-esophageal reflux disease without esophagitis Is this a current diagnosis for this admission?: YesPlan: See attending physician orders (8) Mixed anxiety and depressive disorder Is this a current diagnosis for this admission?: YesPlan: See attending physician orders. restart on Lorazepam 0.5 mg po q6hrs prn for acute anxiety management. (9) Osteoarthritis Qualifiers: Osteoarthritis location: multiple joints Osteoarthritis type: primary Qualified Code(s): M15.0 - Primary generalized (osteo)arthritis Is this a current diagnosis for this admission?: YesPlan: See attending physician orders (10) Tobacco dependence Is this a current diagnosis for this admission?: YesPlan: See attending physician orders (11) Persistent insomnia Is this a current diagnosis for this admission?: YesPlan: Restart on Temazepam therapy with emphasized need for BiPAP usage compliance. Patient reported satisfactory response of same medication at home with regard to her sleep. - Time Time Spent with patient: 25-34 minutes Medications reviewed and adjusted accordingly: Yes Within: Other - Inpatient Certification Medical Necessity: Need Close Monitoring Due to Risk of Patient Decompensation, Need For IV Fluids, Need For Continuous Telemetry Monitoring, Need for Nebulizer Therapy and Monitoring of Response, Need for IV Antibiotics, Risk of Complication if Not Cared For in Hospital Post Hospital Care: D/C Dialysis Tech Documentation - Plan Summary Plan Summary: See attending physician orders.
--- NOTE | 2017-01-08 16:49 | PDOC PROGRESS REPORT ---
Subjective Progress Note for:: 01/08/17 Subjective:: I am a little better Physical Exam Vital Signs: Temp Pulse Resp BP Pulse Ox 97.9 F 131 H 22 H 118/64 91 L 01/08/17 12:17 01/08/17 15:55 01/08/17 15:55 01/08/17 12:17 01/08/17 15:55 Intake & Output 01/07/17 01/08/17 01/09/17 06:59 06:59 06:59 Intake Total 329 2215 240 Balance 329 2215 240 Weight 65.317 kg 65.3 kg General appearance: PRESENT: no acute distress, cooperative, disheveled, well- developed Head exam: PRESENT: atraumatic, normocephalic Eye exam: PRESENT: conjunctiva pale, EOMI Mouth exam: PRESENT: dry mucosa, neck supple Neck exam: ABSENT: carotid bruit, JVD, lymphadenopathy, thyromegaly Respiratory exam: PRESENT: decreased breath sounds, prolonged expiratory phas, rhonchi, symmetrical, unlabored Cardiovascular exam: PRESENT: RRR, +S1, +S2 Pulses: PRESENT: normal radial pulses GI/Abdominal exam: PRESENT: normal bowel sounds, soft. ABSENT: distended, guarding, mass, organolmegaly, rebound, tenderness Rectal exam: PRESENT: deferred Musculoskeletal exam: PRESENT: normal inspection Neurological exam: PRESENT: alert, awake Psychiatric exam: PRESENT: normal mood Skin exam: PRESENT: dry, warm Results Laboratory Results: 01/08/17 05:40 01/07/17 05:43 01/08/17 05:40 WBC 3.9 L D RBC 2.90 L Hgb 9.3 L Hct 27.8 L MCV 96 MCH 32.0 MCHC 33.4 RDW 15.9 H Plt Count 33 L Seg Neutrophils % Not Reportable Lymphocytes % Not Reportable Monocytes % Not Reportable Eosinophils % Not Reportable Basophils % Not Reportable Absolute Neutrophils Not Reportable Absolute Lymphocytes Not Reportable Absolute Monocytes Not Reportable Absolute Eosinophils Not Reportable Absolute Basophils Not Reportable Impressions: Chest X-Ray 01/06/17 09:31 IMPRESSION: Right hilar adenopathy. Left basilar interstitial airspace disease most likely chronic. PICC line is in place. Chest/Abdomen CTA 01/06/17 12:52 IMPRESSION: 1. No pulmonary emboli. 2. Chronic bilateral pleural and parenchymal changes. 3. 13.2 mm pleural-based nodule in the superior segment of the right lower lobe slightly increased in size when compared to prior study. 4. Mediastinal hilar adenopathy is significantly improved from prior study. Assessment & Plan - Diagnosis (1) Pulmonary fibrosis determined by high resolution computed tomography Is this a current diagnosis for this admission?: Yes (2) Acute and chronic respiratory failure Qualifiers: Respiratory failure complication: hypoxia Qualified Code(s): J96.21 - Acute and chronic respiratory failure with hypoxia Is this a current diagnosis for this admission?: Yes (3) Small cell lung cancer Qualifiers: Laterality: right Qualified Code(s): C34.91 - Malignant neoplasm of unspecified part of right bronchus or lung Is this a current diagnosis for this admission?: Yes (4) Tobacco dependence Is this a current diagnosis for this admission?: Yes (5) COPD (chronic obstructive pulmonary disease) with emphysema Qualifiers: Emphysema type: unspecified Qualified Code(s): J43.9 - Emphysema, unspecified Is this a current diagnosis for this admission?: Yes
[2017-01-08] MEDS: FILGRASTIM INJ 480 MCG/1.6 ML VIAL SUBCUT SCH (21:50)
[2017-01-08] MEDS: SIMVASTATIN 40 MG TABLET PO SCH (21:50)
[2017-01-08] MEDS: TEMAZEPAM 15 MG CAPSULE PO SCH (21:50)
[2017-01-08] MEDS ORDERED: (PENDING PHARMACY ID) (Temazepam [Restoril] 30 MG) PO SCH (22:00)
[2017-01-09 06:23] LABS: HEMATOCRIT 26.9 % (36.0-47.0); HEMOGLOBIN 9.2 g/dL (12.0-15.5); HGB HCT DIFFERENCE 0.7; MEAN CORPUSCULAR HEMOGLOBIN 32.6 pg (27.0-33.4); MEAN CORPUSCULAR HGB CONC 34.2 g/dL (32.0-36.0); MEAN CORPUSCULAR VOLUME 95 fl (80-97); RED BLOOD COUNT 2.83 10^6/uL (3.72-5.28); RED CELL DISTRIBUTION WIDTH 16.6 % (11.5-14.0)
[2017-01-09 06:45] LABS: WHITE BLOOD COUNT 10.5 10^3/uL (4.0-10.5)
[2017-01-09 06:48] LABS: BAND NEUTROPHILS % (MANUAL) 4 % (3-5); BASOPHILS % (MANUAL) 0 % (0-2); EOSINOPHILS % (MANUAL) 0 % (0-6); LYMPHOCYTES % (MANUAL) 7 % (13-45); TOTAL CELLS COUNTED 100
[2017-01-09 06:51] LABS: ANISOCYTOSIS 1+; POLYCHROMASIA SLIGHT; TOXIC GRANULATION SLIGHT
[2017-01-09] MEDS: LANSOPRAZOLE 30 MG TAB.RAP.DR PO SCH (08:12)
[2017-01-09] MEDS: VENLAFAXINE HCL 75 MG TABLET PO SCH ×2 (08:13→21:10)
[2017-01-09] MEDS: PREGABALIN 75 MG CAPSULE PO SCH ×3 (08:13→21:10)
[2017-01-09] MEDS: CEFEPIME 2 GM/D5W RTU 50 ML IV SCH ×2 (08:14→21:10)
[2017-01-09] MEDS: NICOTINE 21 MG/24 HR PATCH.TD24 TD SCH (08:14)
[2017-01-09] MEDS: LEVOFLOXACIN 500 MG/D5W RTU 100 ML IV SCH (08:15)
[2017-01-09] MEDS: GUAIFENESIN 600 MG TABLET.SA PO SCH ×2 (08:18→21:11)
[2017-01-09] MEDS: NORMAL SALINE 1000 ML 1,000 ML IV PRN (11:48)
--- NOTE | 2017-01-09 18:42 | PDOC PROGRESS REPORT ---
Subjective Progress Note for:: 01/09/17 Subjective:: Patient reported some improvement in her breathing, tolerating nasal canula oxygen supplementation with BiPAP usage at night or when sleeping. She denied chest pain. No nausea, vomiting, or abdominal pain. Oral intake fair. No reported fever or chills. Physical Exam Vital Signs: Temp Pulse Resp BP Pulse Ox 97.9 F 131 H 28 H 126/53 H 96 01/09/17 15:55 01/09/17 15:55 01/09/17 16:00 01/09/17 15:55 01/09/17 16:00 Intake & Output 01/08/17 01/09/17 01/10/17 06:59 06:59 06:59 Intake Total 2215 2691 1400 Output Total 7 Balance 2215 2684 1400 Weight 65.3 kg Physical Exam: General appearance: PRESENT: severe distress - post use of in room toilet Head exam: PRESENT: atraumatic, normocephalic Eye exam: PRESENT: conjunctiva pink, EOMI, PERRLA. ABSENT: scleral icterus Respiratory exam: PRESENT: decreased breath sounds, prolonged expiratory phase Cardiovascular exam: PRESENT: tachycardia GI/Abdominal exam: PRESENT: normal bowel sounds, soft. ABSENT: distended, guarding, mass, organomegaly, rebound, tenderness Extremities exam: ABSENT: pedal edema Musculoskeletal exam: PRESENT: normal inspection Neurological exam: PRESENT: alert, awake, oriented to person, oriented to place , oriented to time, oriented to situation, CN II-XII grossly intact. ABSENT: motor sensory deficit Psychiatric exam: PRESENT: appropriate affect, normal mood. ABSENT: homicidal ideation, suicidal ideation Skin exam: PRESENT: dry, intact, warm. ABSENT: cyanosis, rash Results Laboratory Results: 01/09/17 05:30 01/07/17 05:43 01/09/17 05:30 WBC 10.5 D RBC 2.83 L Hgb 9.2 L Hct 26.9 L MCV 95 MCH 32.6 MCHC 34.2 RDW 16.6 H Plt Count 36 L Seg Neutrophils % Not Reportable Lymphocytes % Not Reportable Monocytes % Not Reportable Eosinophils % Not Reportable Basophils % Not Reportable Absolute Neutrophils Not Reportable Absolute Lymphocytes Not Reportable Absolute Monocytes Not Reportable Absolute Eosinophils Not Reportable Absolute Basophils Not Reportable Impressions: Chest X-Ray 01/06/17 09:31 IMPRESSION: Right hilar adenopathy. Left basilar interstitial airspace disease most likely chronic. PICC line is in place. Chest/Abdomen CTA 01/06/17 12:52 IMPRESSION: 1. No pulmonary emboli. 2. Chronic bilateral pleural and parenchymal changes. 3. 13.2 mm pleural-based nodule in the superior segment of the right lower lobe slightly increased in size when compared to prior study. 4. Mediastinal hilar adenopathy is significantly improved from prior study. Assessment & Plan - Diagnosis (1) SIRS (systemic inflammatory response syndrome) Is this a current diagnosis for this admission?: YesPlan: See attending physician orders. (2) Acute and chronic respiratory failure Qualifiers: Respiratory failure complication: hypoxia Qualified Code(s): J96.21 - Acute and chronic respiratory failure with hypoxia Is this a current diagnosis for this admission?: YesPlan: See attending physician orders (3) Immunosuppressed due to chemotherapy Is this a current diagnosis for this admission?: YesPlan: See attending physician orders. I will discontinue Neupogen administration with resolution of her neutropenia. (4) Pneumonia due to infectious organism Qualifiers: Laterality: left Lung location: lower lobe of lung Qualified Code(s): J18.1 - Lobar pneumonia, unspecified organism Is this a current diagnosis for this admission?: YesPlan: See attending physician orders. Continue IV Cefepime and Levofloxacin coverage. Change Levofloxacin to oral route. (5) Small cell lung cancer Qualifiers: Laterality: right Qualified Code(s): C34.91 - Malignant neoplasm of unspecified part of right bronchus or lung Is this a current diagnosis for this admission?: YesPlan: See attending physician orders (6) Diabetes mellitus type 2 in nonobese Is this a current diagnosis for this admission?: YesPlan: See attending physician orders (7) GERD (gastroesophageal reflux disease) Qualifiers: Esophagitis presence: without esophagitis Qualified Code(s): K21.9 - Gastro-esophageal reflux disease without esophagitis Is this a current diagnosis for this admission?: YesPlan: See attending physician orders (8) Mixed anxiety and depressive disorder Is this a current diagnosis for this admission?: YesPlan: See attending physician orders. (9) Osteoarthritis Qualifiers: Osteoarthritis location: multiple joints Osteoarthritis type: primary Qualified Code(s): M15.0 - Primary generalized (osteo)arthritis Is this a current diagnosis for this admission?: YesPlan: See attending physician orders (10) Tobacco dependence Is this a current diagnosis for this admission?: YesPlan: See attending physician orders (11) Persistent insomnia Is this a current diagnosis for this admission?: YesPlan: Restart on Temazepam therapy with emphasized need for BiPAP usage compliance. Patient reported satisfactory response of same medication at home with regard to her sleep. (12) Thrombocytopenia due to drugs Is this a current diagnosis for this admission?: YesPlan: Probably due to her chemotherapy. No active bleeding at this time. We will continue to monitor and consider transfusion if total count ids less than 20,000 /UL. - Time Time Spent with patient: 25-34 minutes Medications reviewed and adjusted accordingly: Yes Anticipated discharge: Home with Homehealth Within: Other - Inpatient Certification Based on my medical assessment, after consideration of the patient's comorbidities, presenting symptoms, or acuity I expect that the services needed warrant INPATIENT care.: Yes I certify that my determination is in accordance with my understanding of Medicare's requirements for reasonable and necessary INPATIENT services [42 CFR 412.3e].: Yes Medical Necessity: Need Close Monitoring Due to Risk of Patient Decompensation, Need For IV Fluids, Need For Continuous Telemetry Monitoring, Need for IV Antibiotics, Risk of Complication if Not Cared For in Hospital Post Hospital Care: D/C Flap Lining Binder Documentation - Plan Summary Plan Summary: Se attending physician orders. D/C Neupogen administration.
[2017-01-09] MEDS: TEMAZEPAM 15 MG CAPSULE PO SCH (21:10)
[2017-01-09] MEDS: SIMVASTATIN 40 MG TABLET PO SCH (21:10)
[2017-01-10] MEDS: NORMAL SALINE 1000 ML 1,000 ML IV PRN ×2 (01:29→17:34)
[2017-01-10 06:02] LABS: HEMATOCRIT 25.8 % (36.0-47.0); HEMOGLOBIN 8.5 g/dL (12.0-15.5); HGB HCT DIFFERENCE -0.3; MEAN CORPUSCULAR HEMOGLOBIN 31.8 pg (27.0-33.4); MEAN CORPUSCULAR HGB CONC 33.1 g/dL (32.0-36.0); MEAN CORPUSCULAR VOLUME 96 fl (80-97); RED BLOOD COUNT 2.68 10^6/uL (3.72-5.28); RED CELL DISTRIBUTION WIDTH 16.3 % (11.5-14.0); WHITE BLOOD COUNT 11.7 10^3/uL (4.0-10.5)
[2017-01-10 06:08] LABS: ANION GAP 11 (5-19); BLOOD UREA NITROGEN 10 mg/dL (7-20); CALCIUM 8.2 mg/dL (8.4-10.2); CARBON DIOXIDE 24 mmol/L (22-30); CHLORIDE 108 mmol/L (98-107); GLUCOSE 78 mg/dL (75-110); SODIUM 143.1 mmol/L (137-145)
[2017-01-10 06:14] LABS: POTASSIUM 2.9 mmol/L (3.6-5.0)
[2017-01-10 06:18] LABS: BAND NEUTROPHILS % (MANUAL) 2 % (3-5); BASOPHILS % (MANUAL) 1 % (0-2); EOSINOPHILS % (MANUAL) 1 % (0-6); LYMPHOCYTES % (MANUAL) 10 % (13-45); TOTAL CELLS COUNTED 100
[2017-01-10 06:19] LABS: ANISOCYTOSIS 1+; POLYCHROMASIA SLIGHT; TOXIC GRANULATION SLIGHT
[2017-01-10] MEDS: MAGNESIUM SULFATE 1 GM/D5W 100 ML IV SCH ×2 (08:44→09:54)
[2017-01-10] MEDS: NICOTINE 21 MG/24 HR PATCH.TD24 TD SCH (09:15)
[2017-01-10] MEDS: CEFEPIME 2 GM/D5W RTU 50 ML IV SCH ×2 (09:15→21:32)
[2017-01-10] MEDS: LANSOPRAZOLE 30 MG TAB.RAP.DR PO SCH (09:16)
[2017-01-10] MEDS: POTASSIUM CHLORIDE 10 MEQ TABLET.SA PO SCH ×2 (09:16→14:09)
[2017-01-10] MEDS: PREGABALIN 75 MG CAPSULE PO SCH ×3 (09:17→21:31)
[2017-01-10] MEDS: LEVOFLOXACIN 500 MG TABLET PO SCH (09:17)
[2017-01-10] MEDS: VENLAFAXINE HCL 75 MG TABLET PO SCH ×2 (09:17→21:33)
[2017-01-10] MEDS: GUAIFENESIN 600 MG TABLET.SA PO SCH ×2 (09:18→21:34)
--- NOTE | 2017-01-10 16:06 | PDOC PROGRESS REPORT ---
Subjective Progress Note for:: 01/10/17 Subjective:: Patient reported some improvement in her breathing, tolerating nasal canula oxygen supplementation with BiPAP usage at night or when sleeping. She denied chest pain. No nausea, vomiting, or abdominal pain. She denied any abnormal bleeding with urination or bowel movement. Appetite and oral intake remain fair. No reported fever or chills. Her serum potassium and magnesium were replaced due to reported low levels earlier today. Physical Exam Vital Signs: Temp Pulse Resp BP Pulse Ox 97.9 F 112 H 22 H 120/55 L 91 L 01/10/17 11:45 01/10/17 11:45 01/10/17 11:45 01/10/17 11:45 01/10/17 12:24 Intake & Output 01/09/17 01/10/17 01/11/17 06:59 06:59 06:59 Intake Total 2691 2330 337 Output Total 7 500 Balance 2684 1830 337 Physical Exam: General appearance: PRESENT: moderate distress - worsen post use of in room toilet Head exam: PRESENT: atraumatic, normocephalic Eye exam: PRESENT: conjunctiva pink, EOMI, PERRLA. ABSENT: scleral icterus Respiratory exam: PRESENT: decreased breath sounds, prolonged expiratory phase Cardiovascular exam: PRESENT: tachycardia GI/Abdominal exam: PRESENT: normal bowel sounds, soft. ABSENT: distended, guarding, mass, organomegaly, rebound, tenderness Extremities exam: ABSENT: pedal edema Musculoskeletal exam: PRESENT: normal inspection Neurological exam: PRESENT: alert, awake, oriented to person, oriented to place , oriented to time, oriented to situation, CN II-XII grossly intact. ABSENT: motor sensory deficit Psychiatric exam: PRESENT: appropriate affect, normal mood. ABSENT: homicidal ideation, suicidal ideation Skin exam: PRESENT: dry, intact, warm. ABSENT: cyanosis, rash Results Laboratory Results: 01/10/17 04:50 01/10/17 04:50 01/10/17 01/10/17 01/10/17 04:50 04:50 04:50 WBC 11.7 H RBC 2.68 L Hgb 8.5 L Hct 25.8 L MCV 96 MCH 31.8 MCHC 33.1 RDW 16.3 H Plt Count 37 L Seg Neutrophils % Not Reportable Lymphocytes % Not Reportable Monocytes % Not Reportable Eosinophils % Not Reportable Basophils % Not Reportable Absolute Neutrophils Not Reportable Absolute Lymphocytes Not Reportable Absolute Monocytes Not Reportable Absolute Eosinophils Not Reportable Absolute Basophils Not Reportable Sodium 143.1 Potassium 2.9 L* Chloride 108 H Carbon Dioxide 24 Anion Gap 11 BUN 10 Creatinine 0.50 L Est GFR ( Amer) > 60 Est GFR (Non-Af Amer) > 60 Glucose 78 Calcium 8.2 L Magnesium 1.0 L* Impressions: Chest X-Ray 01/06/17 09:31 IMPRESSION: Right hilar adenopathy. Left basilar interstitial airspace disease most likely chronic. PICC line is in place. Chest/Abdomen CTA 01/06/17 12:52 IMPRESSION: 1. No pulmonary emboli. 2. Chronic bilateral pleural and parenchymal changes. 3. 13.2 mm pleural-based nodule in the superior segment of the right lower lobe slightly increased in size when compared to prior study. 4. Mediastinal hilar adenopathy is significantly improved from prior study. Assessment & Plan - Diagnosis (1) SIRS (systemic inflammatory response syndrome) Is this a current diagnosis for this admission?: YesPlan: Improving parameters. See attending physician orders. (2) Acute and chronic respiratory failure Qualifiers: Respiratory failure complication: hypoxia Qualified Code(s): J96.21 - Acute and chronic respiratory failure with hypoxia Is this a current diagnosis for this admission?: YesPlan: See attending physician orders (3) Immunosuppressed due to chemotherapy Is this a current diagnosis for this admission?: YesPlan: See attending physician orders. Resolved. (4) Pneumonia due to infectious organism Qualifiers: Laterality: left Lung location: lower lobe of lung Qualified Code(s): J18.1 - Lobar pneumonia, unspecified organism Is this a current diagnosis for this admission?: YesPlan: See attending physician orders. Continue IV Cefepime and oral Levofloxacin coverage. (5) Small cell lung cancer Qualifiers: Laterality: right Qualified Code(s): C34.91 - Malignant neoplasm of unspecified part of right bronchus or lung Is this a current diagnosis for this admission?: YesPlan: See attending physician orders (6) Diabetes mellitus type 2 in nonobese Is this a current diagnosis for this admission?: YesPlan: See attending physician orders (7) GERD (gastroesophageal reflux disease) Qualifiers: Esophagitis presence: without esophagitis Qualified Code(s): K21.9 - Gastro-esophageal reflux disease without esophagitis Is this a current diagnosis for this admission?: YesPlan: See attending physician orders (8) Mixed anxiety and depressive disorder Is this a current diagnosis for this admission?: YesPlan: See attending physician orders. (9) Osteoarthritis Qualifiers: Osteoarthritis location: multiple joints Osteoarthritis type: primary Qualified Code(s): M15.0 - Primary generalized (osteo)arthritis Is this a current diagnosis for this admission?: YesPlan: See attending physician orders (10) Tobacco dependence Is this a current diagnosis for this admission?: YesPlan: See attending physician orders (11) Persistent insomnia Is this a current diagnosis for this admission?: YesPlan: See attending physician orders. (12) Thrombocytopenia due to drugs Is this a current diagnosis for this admission?: YesPlan: Platelet count remain fairly stable with slight comparable improvement since last clinical evaluation. We will continue to monitor for abnormal bleeding. - Time Time Spent with patient: 25-34 minutes Medications reviewed and adjusted accordingly: Yes Anticipated discharge: Home Within: Other - Inpatient Certification Medical Necessity: Need Close Monitoring Due to Risk of Patient Decompensation, Need For IV Fluids, Need For Continuous Telemetry Monitoring, Need for Nebulizer Therapy and Monitoring of Response, Need for IV Antibiotics, Risk of Complication if Not Cared For in Hospital - Plan Summary Plan Summary: See attending physician orders.
[2017-01-10 16:50] LABS: ALBUMIN 2.9 g/dL (3.5-5.0); ANION GAP 10 (5-19); BLOOD UREA NITROGEN 7 mg/dL (7-20); CALCIUM 8.1 mg/dL (8.4-10.2); CARBON DIOXIDE 23 mmol/L (22-30); CHLORIDE 109 mmol/L (98-107); CREATININE RESULT 0.49 mg/dL (0.52-1.25); GLUCOSE 80 mg/dL (75-110); MAGNESIUM 1.6 mg/dL (1.6-2.3); PHOSPHORUS 2.4 mg/dL (2.5-4.5); SODIUM 141.9 mmol/L (137-145)
[2017-01-10] MEDS: TEMAZEPAM 15 MG CAPSULE PO SCH (21:32)
[2017-01-10] MEDS: SIMVASTATIN 40 MG TABLET PO SCH (21:32)
[2017-01-11] MEDS: PREGABALIN 75 MG CAPSULE PO SCH ×3 (06:09→21:42)
[2017-01-11] MEDS: LANSOPRAZOLE 30 MG TAB.RAP.DR PO SCH (06:09)
[2017-01-11] MEDS: NORMAL SALINE 1000 ML 1,000 ML IV PRN (07:57)
[2017-01-11] MEDS: IPRATROPIUM/ALBUTEROL 0.5-2.5 MG/3 ML AMPUL NEB PRN (08:36)
[2017-01-11] MEDS: VENLAFAXINE HCL 75 MG TABLET PO SCH ×2 (10:45→21:43)
[2017-01-11] MEDS: NICOTINE 21 MG/24 HR PATCH.TD24 TD SCH (10:45)
[2017-01-11] MEDS: LEVOFLOXACIN 500 MG TABLET PO SCH (10:45)
[2017-01-11] MEDS: GUAIFENESIN 600 MG TABLET.SA PO SCH ×2 (10:45→21:44)
[2017-01-11] MEDS: CEFEPIME 2 GM/D5W RTU 50 ML IV SCH ×2 (10:45→21:44)
--- NOTE | 2017-01-11 14:55 | PDOC PROGRESS REPORT ---
Subjective Progress Note for:: 01/11/17 Subjective:: She was seen by the bedside, she was admitted because of pneumonia, lung cancer and COPD. She has no new complaints today Physical Exam Vital Signs: Temp Pulse Resp BP Pulse Ox 97.9 F 123 H 19 104/41 L 83 L 01/11/17 11:16 01/11/17 11:16 01/11/17 11:16 01/11/17 11:16 01/11/17 11:16 Intake & Output 01/10/17 01/11/17 01/12/17 06:59 06:59 06:59 Intake Total 2330 1624 120 Output Total 500 Balance 1830 1624 120 General appearance: PRESENT: no acute distress Eye exam: PRESENT: PERRLA Respiratory exam: PRESENT: wheezes Cardiovascular exam: PRESENT: +S1, +S2 GI/Abdominal exam: PRESENT: soft Neurological exam: PRESENT: alert Results Laboratory Results: 01/10/17 04:50 01/10/17 16:00 01/10/17 16:00 Sodium 141.9 Potassium 4.0 D Chloride 109 H Carbon Dioxide 23 Anion Gap 10 BUN 7 Creatinine 0.49 L Est GFR ( Amer) > 60 Est GFR (Non-Af Amer) > 60 Glucose 80 Calcium 8.1 L Phosphorus 2.4 L Magnesium 1.6 Albumin 2.9 L Impressions: Chest X-Ray 01/06/17 09:31 IMPRESSION: Right hilar adenopathy. Left basilar interstitial airspace disease most likely chronic. PICC line is in place. Chest/Abdomen CTA 01/06/17 12:52 IMPRESSION: 1. No pulmonary emboli. 2. Chronic bilateral pleural and parenchymal changes. 3. 13.2 mm pleural-based nodule in the superior segment of the right lower lobe slightly increased in size when compared to prior study. 4. Mediastinal hilar adenopathy is significantly improved from prior study. Assessment & Plan - Diagnosis (1) Pneumonia Qualifiers: Pneumonia type: due to unspecified organism Laterality: unspecified laterality Lung location: unspecified part of lung Qualified Code(s) : J18.9 - Pneumonia, unspecified organism Is this a current diagnosis for this admission?: Yes (2) Immunosuppressed due to chemotherapy Is this a current diagnosis for this admission?: Yes (3) Small cell lung cancer Qualifiers: Laterality: right Qualified Code(s): C34.91 - Malignant neoplasm of unspecified part of right bronchus or lung Is this a current diagnosis for this admission?: Yes (4) COPD (chronic obstructive pulmonary disease) with emphysema Qualifiers: Emphysema type: unspecified Qualified Code(s): J43.9 - Emphysema, unspecified Is this a current diagnosis for this admission?: Yes (5) SIRS (systemic inflammatory response syndrome) Is this a current diagnosis for this admission?: Yes - Plan Summary Plan Summary: Continue present IV antibiotic and other treatment regimen.
[2017-01-11] MEDS: TEMAZEPAM 15 MG CAPSULE PO SCH (21:42)
[2017-01-11] MEDS: SIMVASTATIN 40 MG TABLET PO SCH (21:42)
[2017-01-12] MEDS: LANSOPRAZOLE 30 MG TAB.RAP.DR PO SCH (05:00)
[2017-01-12] MEDS: PREGABALIN 75 MG CAPSULE PO SCH ×3 (05:00→21:49)
[2017-01-12] MEDS: CEFEPIME 2 GM/D5W RTU 50 ML IV SCH ×2 (10:21→21:46)
[2017-01-12] MEDS: NICOTINE 21 MG/24 HR PATCH.TD24 TD SCH (10:21)
[2017-01-12] MEDS: LEVOFLOXACIN 500 MG TABLET PO SCH (10:21)
[2017-01-12] MEDS: VENLAFAXINE HCL 75 MG TABLET PO SCH ×2 (10:21→21:48)
[2017-01-12] MEDS: NORMAL SALINE 1000 ML 1,000 ML IV PRN ×2 (10:21→21:53)
[2017-01-12] MEDS: GUAIFENESIN 600 MG TABLET.SA PO SCH ×2 (10:22→21:53)
--- NOTE | 2017-01-12 13:34 | PDOC PROGRESS REPORT ---
Subjective Progress Note for:: 01/12/17 Subjective:: Patient condition is about the same no change from yesterday. Physical Exam Vital Signs: Temp Pulse Resp BP Pulse Ox 97.8 F 108 H 23 H 107/49 L 84 L 01/12/17 10:54 01/12/17 10:54 01/12/17 08:00 01/12/17 10:54 01/12/17 10:54 Intake & Output 01/11/17 01/12/17 01/13/17 06:59 06:59 06:59 Intake Total 1624 2606 Balance 1624 2606 Weight 66.2 kg General appearance: PRESENT: no acute distress Eye exam: PRESENT: PERRLA Respiratory exam: PRESENT: clear to auscultation doug Cardiovascular exam: PRESENT: +S1, +S2 GI/Abdominal exam: PRESENT: soft Neurological exam: PRESENT: alert, CN II-XII grossly intact Results Laboratory Results: 01/10/17 04:50 01/10/17 16:00 Impressions: Chest X-Ray 01/06/17 09:31 IMPRESSION: Right hilar adenopathy. Left basilar interstitial airspace disease most likely chronic. PICC line is in place. Chest/Abdomen CTA 01/06/17 12:52 IMPRESSION: 1. No pulmonary emboli. 2. Chronic bilateral pleural and parenchymal changes. 3. 13.2 mm pleural-based nodule in the superior segment of the right lower lobe slightly increased in size when compared to prior study. 4. Mediastinal hilar adenopathy is significantly improved from prior study. Assessment & Plan - Diagnosis (1) Pneumonia Qualifiers: Pneumonia type: due to unspecified organism Laterality: unspecified laterality Lung location: unspecified part of lung Qualified Code(s) : J18.9 - Pneumonia, unspecified organism Is this a current diagnosis for this admission?: Yes (2) Immunosuppressed due to chemotherapy Is this a current diagnosis for this admission?: Yes (3) Small cell lung cancer Qualifiers: Laterality: right Qualified Code(s): C34.91 - Malignant neoplasm of unspecified part of right bronchus or lung Is this a current diagnosis for this admission?: Yes (4) COPD (chronic obstructive pulmonary disease) with emphysema Qualifiers: Emphysema type: unspecified Qualified Code(s): J43.9 - Emphysema, unspecified Is this a current diagnosis for this admission?: Yes (5) SIRS (systemic inflammatory response syndrome) Is this a current diagnosis for this admission?: Yes - Plan Summary Plan Summary: Patient is improved, on auscultation of the lung is clear, she could be discharged home tomorrow
[2017-01-12] MEDS: SIMVASTATIN 40 MG TABLET PO SCH (21:47)
[2017-01-12] MEDS: TEMAZEPAM 15 MG CAPSULE PO SCH (21:47)
[2017-01-13] MEDS: PREGABALIN 75 MG CAPSULE PO SCH ×3 (05:06→22:06)
[2017-01-13] MEDS: LANSOPRAZOLE 30 MG TAB.RAP.DR PO SCH (05:06)
[2017-01-13] MEDS ORDERED: ERGOCALCIFEROL (VITAMIN D2) 50000 UNIT (1.25 MG) CAPSULE PO SCH (10:00)
[2017-01-13] MEDS: LEVOFLOXACIN 500 MG TABLET PO SCH (10:21)
[2017-01-13] MEDS: VENLAFAXINE HCL 75 MG TABLET PO SCH ×2 (10:22→22:06)
[2017-01-13] MEDS: CEFEPIME 2 GM/D5W RTU 50 ML IV SCH (10:22)
[2017-01-13] MEDS: GUAIFENESIN 600 MG TABLET.SA PO SCH ×2 (10:23→22:07)
[2017-01-13] MEDS: NICOTINE 21 MG/24 HR PATCH.TD24 TD SCH (10:23)
--- NOTE | 2017-01-13 12:22 | PDOC PROGRESS REPORT ---
Subjective Progress Note for:: 01/13/17 Subjective:: Feel much better cannot have one of these machines (BiPAP) Physical Exam Vital Signs: Temp Pulse Resp BP Pulse Ox 97.6 F 100 27 H 105/48 L 91 L 01/13/17 08:04 01/13/17 08:04 01/13/17 08:04 01/13/17 08:04 01/13/17 08:04 Intake & Output 01/12/17 01/13/17 01/14/17 06:59 06:59 06:59 Intake Total 2606 3634 Balance 2606 3634 Weight 66.2 kg General appearance: PRESENT: no acute distress, cooperative, disheveled, thin, well-developed Head exam: PRESENT: atraumatic, normocephalic Eye exam: PRESENT: conjunctiva pale, EOMI Mouth exam: PRESENT: dry mucosa, neck supple, tongue midline Neck exam: ABSENT: carotid bruit, JVD, lymphadenopathy, thyromegaly Respiratory exam: PRESENT: decreased breath sounds, prolonged expiratory phas, rhonchi Cardiovascular exam: PRESENT: RRR, +S1, +S2 Pulses: PRESENT: normal radial pulses GI/Abdominal exam: PRESENT: normal bowel sounds, soft. ABSENT: distended, guarding, mass, organolmegaly, rebound, tenderness Rectal exam: PRESENT: deferred Musculoskeletal exam: PRESENT: normal inspection Neurological exam: PRESENT: alert, awake Psychiatric exam: PRESENT: normal mood Skin exam: PRESENT: dry, warm Results Laboratory Results: 01/10/17 04:50 01/10/17 16:00 Impressions: Chest X-Ray 01/06/17 09:31 IMPRESSION: Right hilar adenopathy. Left basilar interstitial airspace disease most likely chronic. PICC line is in place. Chest/Abdomen CTA 01/06/17 12:52 IMPRESSION: 1. No pulmonary emboli. 2. Chronic bilateral pleural and parenchymal changes. 3. 13.2 mm pleural-based nodule in the superior segment of the right lower lobe slightly increased in size when compared to prior study. 4. Mediastinal hilar adenopathy is significantly improved from prior study. Assessment & Plan - Diagnosis (1) Pulmonary fibrosis determined by high resolution computed tomography Is this a current diagnosis for this admission?: Yes (2) Acute and chronic respiratory failure Qualifiers: Respiratory failure complication: hypoxia Qualified Code(s): J96.21 - Acute and chronic respiratory failure with hypoxia Is this a current diagnosis for this admission?: YesPlan: The above patient has failed BiPAP. This patient would benefit from noninvasive mechanical ventilation via the trilogy AVAPS/AE and faster responding AVAPS rates. The trilogy is able to provide a target tidal volume and also adjusting the EPAP pressures to maintain a patent airway as well as an oral backup rate this machine will help improve PaCO2 levels. The severity of the patient's condition will lead to future hospitalizations and readmissions as well as life-threatening situations without the use of this device trilogy home vent needed for hypercapnic respiratory failure. Family [facility] to follow for trilogy set up. (3) Small cell lung cancer Qualifiers: Laterality: right Qualified Code(s): C34.91 - Malignant neoplasm of unspecified part of right bronchus or lung Is this a current diagnosis for this admission?: Yes (4) Tobacco dependence Is this a current diagnosis for this admission?: Yes (5) COPD (chronic obstructive pulmonary disease) with emphysema Qualifiers: Emphysema type: unspecified Qualified Code(s): J43.9 - Emphysema, unspecified Is this a current diagnosis for this admission?: Yes
--- NOTE | 2017-01-13 17:52 | PDOC PROGRESS REPORT ---
Subjective Progress Note for:: 01/13/17 Subjective:: Patient remain on BiPAP support. Shipping & Receiving Lead recommend Trilogy EPAP support upon discharge. She denied chest pain. No nausea, vomiting, or abdominal pain. Appetite and oral intake remain fair. No reported fever or chills. Physical Exam Vital Signs: Temp Pulse Resp BP Pulse Ox 98.1 F 119 H 32 H 99/43 L 94 01/13/17 15:51 01/13/17 15:51 01/13/17 15:51 01/13/17 16:20 01/13/17 15:51 Intake & Output 01/12/17 01/13/17 01/14/17 06:59 06:59 06:59 Intake Total 2606 3634 222 Balance 2606 3634 222 Weight 66.2 kg Physical Exam: General appearance: PRESENT: moderate distress - worsen post use of in room toilet Head exam: PRESENT: atraumatic, normocephalic Eye exam: PRESENT: conjunctiva pink, EOMI, PERRLA. ABSENT: scleral icterus Respiratory exam: PRESENT: decreased breath sounds, prolonged expiratory phase Cardiovascular exam: PRESENT: tachycardia GI/Abdominal exam: PRESENT: normal bowel sounds, soft. ABSENT: distended, guarding, mass, organomegaly, rebound, tenderness Extremities exam: ABSENT: pedal edema Musculoskeletal exam: PRESENT: normal inspection Neurological exam: PRESENT: alert, awake, oriented to person, oriented to place , oriented to time, oriented to situation, CN II-XII grossly intact. ABSENT: motor sensory deficit Psychiatric exam: PRESENT: appropriate affect, normal mood. ABSENT: homicidal ideation, suicidal ideation Skin exam: PRESENT: dry, intact, warm. ABSENT: cyanosis, rash Results Laboratory Results: 01/10/17 04:50 01/10/17 16:00 Impressions: Chest X-Ray 01/06/17 09:31 IMPRESSION: Right hilar adenopathy. Left basilar interstitial airspace disease most likely chronic. PICC line is in place. Chest/Abdomen CTA 01/06/17 12:52 IMPRESSION: 1. No pulmonary emboli. 2. Chronic bilateral pleural and parenchymal changes. 3. 13.2 mm pleural-based nodule in the superior segment of the right lower lobe slightly increased in size when compared to prior study. 4. Mediastinal hilar adenopathy is significantly improved from prior study. Assessment & Plan - Diagnosis (1) SIRS (systemic inflammatory response syndrome) Is this a current diagnosis for this admission?: Yes (2) Acute and chronic respiratory failure Qualifiers: Respiratory failure complication: hypoxia Qualified Code(s): J96.21 - Acute and chronic respiratory failure with hypoxia Is this a current diagnosis for this admission?: Yes (3) Immunosuppressed due to chemotherapy Is this a current diagnosis for this admission?: Yes (4) Pneumonia due to infectious organism Qualifiers: Laterality: left Lung location: lower lobe of lung Qualified Code(s): J18.1 - Lobar pneumonia, unspecified organism Is this a current diagnosis for this admission?: Yes (5) Small cell lung cancer Qualifiers: Laterality: right Qualified Code(s): C34.91 - Malignant neoplasm of unspecified part of right bronchus or lung Is this a current diagnosis for this admission?: Yes (6) Diabetes mellitus type 2 in nonobese Is this a current diagnosis for this admission?: Yes (7) GERD (gastroesophageal reflux disease) Qualifiers: Esophagitis presence: without esophagitis Qualified Code(s): K21.9 - Gastro-esophageal reflux disease without esophagitis Is this a current diagnosis for this admission?: Yes (8) Mixed anxiety and depressive disorder Is this a current diagnosis for this admission?: Yes (9) Osteoarthritis Qualifiers: Osteoarthritis location: multiple joints Osteoarthritis type: primary Qualified Code(s): M15.0 - Primary generalized (osteo)arthritis Is this a current diagnosis for this admission?: Yes (10) Tobacco dependence Is this a current diagnosis for this admission?: Yes (11) Persistent insomnia Is this a current diagnosis for this admission?: Yes (12) Thrombocytopenia due to drugs Is this a current diagnosis for this admission?: Yes - Time Time Spent with patient: 25-34 minutes - Inpatient Certification Medical Necessity: Need Close Monitoring Due to Risk of Patient Decompensation, Need For IV Fluids, Need For Continuous Telemetry Monitoring, Need for Nebulizer Therapy and Monitoring of Response, Need for IV Antibiotics, Risk of Diagnosis Which Will Require Inpatient Eval/Care/Monitoring Post Hospital Care: D/C Environmental Protection Inspector Documentation - Plan Summary Plan Summary: Se attending physician orders. Follow up on arrangement for Trilogy upon discharge. Obtain CBC with Diff, BMP.
[2017-01-13] MEDS: NORMAL SALINE 1000 ML 1,000 ML IV PRN (18:40)
[2017-01-13 19:08] LABS: HGB HCT DIFFERENCE -0.3; MEAN CORPUSCULAR HEMOGLOBIN 31.7 pg (27.0-33.4); MEAN CORPUSCULAR VOLUME 96 fl (80-97); RED CELL DISTRIBUTION WIDTH 17.7 % (11.5-14.0); WHITE BLOOD COUNT 4.5 10^3/uL (4.0-10.5)
[2017-01-13 19:27] LABS: ANION GAP 8 (5-19); BLOOD UREA NITROGEN 9 mg/dL (7-20); CARBON DIOXIDE 27 mmol/L (22-30); CHLORIDE 107 mmol/L (98-107); GLUCOSE 128 mg/dL (75-110); POTASSIUM 3.7 mmol/L (3.6-5.0); SODIUM 141.6 mmol/L (137-145)
[2017-01-13 19:33] LABS: BAND NEUTROPHILS % (MANUAL) 3 % (3-5); BASOPHILS % (MANUAL) 0 % (0-2); EOSINOPHILS % (MANUAL) 3 % (0-6); LYMPHOCYTES % (MANUAL) 22 % (13-45); TOTAL CELLS COUNTED 100
[2017-01-13 19:34] LABS: ANISOCYTOSIS 1+; HYPOCHROMASIA SLIGHT; POLYCHROMASIA SLIGHT
[2017-01-13 19:38] LABS: HEMOGLOBIN 7.9 g/dL (12.0-15.5)
[2017-01-13] MEDS: SIMVASTATIN 40 MG TABLET PO SCH (22:06)
[2017-01-14] MEDS: TEMAZEPAM 15 MG CAPSULE PO SCH (03:07)
[2017-01-14] MEDS: LANSOPRAZOLE 30 MG TAB.RAP.DR PO SCH (05:11)
[2017-01-14] MEDS: PREGABALIN 75 MG CAPSULE PO SCH ×2 (05:11→14:51)
[2017-01-14 08:09] LABS: HGB HCT DIFFERENCE 0.7; MEAN CORPUSCULAR HGB CONC 34.2 g/dL (32.0-36.0); MEAN CORPUSCULAR VOLUME 94 fl (80-97); RED BLOOD COUNT 3.23 10^6/uL (3.72-5.28); RED CELL DISTRIBUTION WIDTH 16.1 % (11.5-14.0)
[2017-01-14 08:32] LABS: HEMATOCRIT 30.2 % (36.0-47.0); HEMOGLOBIN 10.3 g/dL (12.0-15.5)
--- NOTE | 2017-01-14 09:06 | PDOC DISCHARGE SUMMARY ---
General - Admit/Disc Date/PCP Admission Date/Primary Care Provider: 01/06/17 20:22 BREANNA GONZALEZ Discharge Date: 01/14/17 - Discharge Diagnosis (1) SIRS (systemic inflammatory response syndrome) Is this a current diagnosis for this admission?: Yes (2) Acute and chronic respiratory failure Is this a current diagnosis for this admission?: Yes (3) Immunosuppressed due to chemotherapy Is this a current diagnosis for this admission?: Yes (4) Pneumonia due to infectious organism Is this a current diagnosis for this admission?: Yes (5) Small cell lung cancer Is this a current diagnosis for this admission?: Yes (6) Diabetes mellitus type 2 in nonobese Is this a current diagnosis for this admission?: Yes (7) GERD (gastroesophageal reflux disease) Is this a current diagnosis for this admission?: Yes (8) Mixed anxiety and depressive disorder Is this a current diagnosis for this admission?: Yes (9) Osteoarthritis Is this a current diagnosis for this admission?: Yes (10) Tobacco dependence Is this a current diagnosis for this admission?: Yes (11) Persistent insomnia Is this a current diagnosis for this admission?: Yes (12) Thrombocytopenia due to drugs Is this a current diagnosis for this admission?: Yes - Additional Information Resuscitation Status: Do Not Resuscitate - I had extensive discussion with patient and spouse at bedside. She will manitain a DNR status. Discharge Diet: Regular Discharge Activity: Activity As Tolerated Home Medications: Budesonide [Pulmicort Neb 0.5 mg/2 ml Ampul] 0.5 mg NEB RTDAILY 01/06/17 Clotrimazole [Mycelex 10 mg Marlin] 10 mg MM 5XD 01/06/17 Ergocalciferol (Vitamin D2) [Drisdol 50,000 unit (1.25MG) Capsule] 50,000 unit PO MO@1000 01/06/17 Esomeprazole Magnesium [Nexium] 40 mg PO Q6AM 01/06/17 Ipratropium/Albuterol Sulfate [Duoneb 3 ml Ampul] 3 ml NEB RTQ6 01/06/17 Lorazepam [Ativan 0.5 mg Tablet] 0.5 mg PO Q6HP PRN 01/06/17 Naloxegol Oxalate [Movantik 25 mg Tablet] 25 mg PO DAILY 01/06/17 Nicotine [Nicoderm 21 mg/24 Hr Transderm Patch] 1 patch TD DAILY 01/06/17 Oxycodone HCl/Acetaminophen [Percocet 10-325 mg Tablet] 1 tab PO Q12HP PRN 01/06 Pregabalin [Lyrica 75 mg Capsule] 75 mg PO BID 01/06/17 Pregabalin [Lyrica 75 mg Capsule] 150 mg PO QHS 01/06/17 Prochlorperazine Maleate [Compazine 10 mg Tablet] 10 mg PO Q6HP PRN 01/06/17 Simvastatin [Zocor 20 mg Tablet] 20 mg PO QHS 01/06/17 Temazepam [Restoril] 30 mg PO QHS 01/06/17 Venlafaxine HCl [Effexor 75 mg Tablet] 75 mg PO Q12 01/06/17 Levofloxacin [Levaquin 500 mg Tablet] 500 mg PO DAILY #5 tablet 01/14/17 History of Present Illness History of Present Illness: ROBSON RODRIGUEZ is a 66 year old female known to my practice who was brought the the E by EMS personnel following activation as instructed by her landscape management technician Dr Sands. Patient and spouse reported development of increase difficulty with breathing more than usual this morning with her oxygen saturation in the 40% range. She subsequently called Dr Sands's office and firmed instructed to call 911. EMS staff reported persistent hypoxemia despite supplemental oxygen administration and this was confirmed by her vitals upon arrival at the ED. She was initially managed with BiPAP support with some improvement. Her chest X ray was none revealing necessitating chest CAT scan. She had chemotherapy for her metastatic lung cancer about 2 weeks ago. She is schedule for PET scan evaluation in the coming week. She denied any fever or chills. No significant coughing. No chest pain. No nausea or vomiting. Her appetite and P.O intake have been chronically poor. Her comorbidities include diet controlled Diabetes mellitus type 2, Hyperlipidemia, COPD, Asthma, Lung Cancer, GERD, Osteoarthritis, and Depression. She continue to smoke about 05/22 PPD. Hospital Course Hospital Course: Patient was treated as possible pneumonia case for worsening hypoxemia with MESH MAN , pulmonary fibrosis and lung cancer. She did improve in terms of oxygenation on BiPAP support. She was seen in consultation by Dr. Sands, landscape management technician, with recommendation of trilogy device upon discharge for home use. She was transfused 2 units of PRBC due to low hemoglobin. At discharge her hemoglobin is 10.3 gm/dL. She will be discharge home today and follow up in the office as instructed upon discharge. Physical Exam Vital Signs: Temp Pulse Resp BP Pulse Ox 97.8 F 101 H 26 H 111/52 L 90 L 01/14/17 07:16 01/14/17 07:16 01/14/17 07:16 01/14/17 07:16 01/14/17 07:16 Intake & Output 01/13/17 01/14/17 01/15/17 06:59 06:59 06:59 Intake Total 3634 2534 Balance 3634 2537 Physical Exam: General appearance: PRESENT: moderate distress - worsen post use of in room toilet Head exam: PRESENT: atraumatic, normocephalic Eye exam: PRESENT: conjunctiva pink, EOMI, PERRLA. ABSENT: scleral icterus Respiratory exam: PRESENT: decreased breath sounds, prolonged expiratory phase Cardiovascular exam: PRESENT: tachycardia GI/Abdominal exam: PRESENT: normal bowel sounds, soft. ABSENT: distended, guarding, mass, organomegaly, rebound, tenderness Extremities exam: ABSENT: pedal edema Musculoskeletal exam: PRESENT: normal inspection Neurological exam: PRESENT: alert, awake, oriented to person, oriented to place , oriented to time, oriented to situation, CN II-XII grossly intact. ABSENT: motor sensory deficit Psychiatric exam: PRESENT: appropriate affect, normal mood. ABSENT: homicidal ideation, suicidal ideation Skin exam: PRESENT: dry, intact, warm. ABSENT: cyanosis, rash Results Laboratory Results: 01/14/17 06:47 01/13/17 18:40 01/13/17 01/13/17 01/13/17 18:40 18:40 20:05 WBC 4.5 RBC 2.50 L Hgb 7.9 L Hct 24.0 L MCV 96 MCH 31.7 MCHC 33.0 RDW 17.7 H Plt Count 39 L Seg Neutrophils % Not Reportable Lymphocytes % Not Reportable Monocytes % Not Reportable Eosinophils % Not Reportable Basophils % Not Reportable Absolute Neutrophils Not Reportable Absolute Lymphocytes Not Reportable Absolute Monocytes Not Reportable Absolute Eosinophils Not Reportable Absolute Basophils Not Reportable Sodium 141.6 Potassium 3.7 Chloride 107 Carbon Dioxide 27 Anion Gap 8 BUN 9 Creatinine 0.50 L Est GFR ( Amer) > 60 Est GFR (Non-Af Amer) > 60 Glucose 128 H Calcium 8.0 L Blood Type AB POSITIVE Antibody Screen NEGATIVE 01/14/17 06:47 WBC 5.0 RBC 3.23 L Hgb 10.3 L D Hct 30.2 L MCV 94 MCH 32.0 MCHC 34.2 RDW 16.1 H Plt Count 44 L Seg Neutrophils % Lymphocytes % Monocytes % Eosinophils % Basophils % Absolute Neutrophils Absolute Lymphocytes Absolute Monocytes Absolute Eosinophils Absolute Basophils Sodium Potassium Chloride Carbon Dioxide Anion Gap BUN Creatinine Est GFR ( Amer) Est GFR (Non-Af Amer) Glucose Calcium Blood Type Antibody Screen Impressions: Chest X-Ray 01/06/17 09:31 IMPRESSION: Right hilar adenopathy. Left basilar interstitial airspace disease most likely chronic. PICC line is in place. Chest/Abdomen CTA 01/06/17 12:52 IMPRESSION: 1. No pulmonary emboli. 2. Chronic bilateral pleural and parenchymal changes. 3. 13.2 mm pleural-based nodule in the superior segment of the right lower lobe slightly increased in size when compared to prior study. 4. Mediastinal hilar adenopathy is significantly improved from prior study. Qualifiers PATEINT BEING DISCHARGED WITH ANY OF THE FOLLOWING DIAGNOSIS?: No Plan Discharge Plan: D/C home today. Follow up in the office as instructed upon discharge. Time Spent: Less than 30 Minutes
[2017-01-14] MEDS: GUAIFENESIN 600 MG TABLET.SA PO SCH (10:10)
[2017-01-14] MEDS: NICOTINE 21 MG/24 HR PATCH.TD24 TD SCH (10:15)
[2017-01-14] MEDS: VENLAFAXINE HCL 75 MG TABLET PO SCH (10:15)
[2017-01-14 10:32] LABS: ARTERIAL BLOOD BASE EXCESS 3.6 mmol/L; ARTERIAL BLOOD O2 SATURATION 88.6 % (94-98)
[2017-01-14] MEDS: IPRATROPIUM/ALBUTEROL 0.5-2.5 MG/3 ML AMPUL NEB PRN (11:37)
[2017-01-14 11:58] VITALS: BP 115/64
--- NOTE | 2017-01-14 20:38 | PDOC PROGRESS REPORT ---
Subjective Progress Note for:: 01/14/17 Subjective:: Feel much better Physical Exam Vital Signs: Temp Pulse Resp BP Pulse Ox 98.2 F 101 H 16 115/64 90 L 01/14/17 14:02 01/14/17 14:02 01/14/17 14:02 01/14/17 14:02 01/14/17 14:02 Intake & Output 01/13/17 01/14/17 01/15/17 06:59 06:59 06:59 Intake Total 3634 3732 50 Balance 3634 2537 50 General appearance: PRESENT: no acute distress, cooperative, disheveled Head exam: PRESENT: atraumatic, normocephalic Eye exam: PRESENT: conjunctiva pale, EOMI Mouth exam: PRESENT: dry mucosa, neck supple Neck exam: ABSENT: carotid bruit, JVD, lymphadenopathy, thyromegaly Respiratory exam: PRESENT: decreased breath sounds, prolonged expiratory phas, rales, rhonchi, symmetrical Cardiovascular exam: PRESENT: RRR, +S1, +S2 Pulses: PRESENT: normal radial pulses GI/Abdominal exam: PRESENT: normal bowel sounds, soft. ABSENT: distended, guarding, mass, organolmegaly, rebound, tenderness Rectal exam: PRESENT: deferred Musculoskeletal exam: PRESENT: normal inspection Neurological exam: PRESENT: alert Skin exam: PRESENT: dry, warm Results Laboratory Results: 01/14/17 06:47 01/13/17 18:40 01/13/17 01/14/17 01/14/17 20:05 06:47 09:45 WBC 5.0 RBC 3.23 L Hgb 10.3 L D Hct 30.2 L MCV 94 MCH 32.0 MCHC 34.2 RDW 16.1 H Plt Count 44 L Carbonic Acid 1.27 HCO3/H2CO3 Ratio 22:1 ABG pH 7.44 ABG pCO2 42.3 ABG pO2 53.0 L ABG HCO3 28.2 H ABG O2 Saturation 88.6 L ABG Base Excess 3.6 FiO2 6L Blood Type AB POSITIVE Antibody Screen NEGATIVE Impressions: Chest X-Ray 01/06/17 09:31 IMPRESSION: Right hilar adenopathy. Left basilar interstitial airspace disease most likely chronic. PICC line is in place. Chest/Abdomen CTA 01/06/17 12:52 IMPRESSION: 1. No pulmonary emboli. 2. Chronic bilateral pleural and parenchymal changes. 3. 13.2 mm pleural-based nodule in the superior segment of the right lower lobe slightly increased in size when compared to prior study. 4. Mediastinal hilar adenopathy is significantly improved from prior study. Assessment & Plan - Diagnosis (1) Pulmonary fibrosis determined by high resolution computed tomography Is this a current diagnosis for this admission?: Yes (2) Acute and chronic respiratory failure Qualifiers: Respiratory failure complication: hypoxia Qualified Code(s): J96.21 - Acute and chronic respiratory failure with hypoxia Is this a current diagnosis for this admission?: Yes (3) Small cell lung cancer Qualifiers: Laterality: right Qualified Code(s): C34.91 - Malignant neoplasm of unspecified part of right bronchus or lung Is this a current diagnosis for this admission?: Yes (4) Tobacco dependence Is this a current diagnosis for this admission?: Yes (5) COPD (chronic obstructive pulmonary disease) with emphysema Qualifiers: Emphysema type: unspecified Qualified Code(s): J43.9 - Emphysema, unspecified Is this a current diagnosis for this admission?: Yes
--- NOTE | 2017-01-23 17:17 | Pulmonary Function Test ---
Pulmonary Function Test Date of Procedure:: 01/14/17 INDICATION:: Dyspnea Referring Provider: Dr. Indra Tirado [employer] Admin: Ning Jesus [employer]EL[employer] MACHINE ERCP - Report Spirometry: FVC 1.39 L 64% postbronchodilator therapy 1.33 L 61% FEV1 1.01 L 57% postbronchodilator therapy 0.94 L 53% FEV1/FVC % 73 postbronchodilator therapy 71 predicted 82 FEF 25-75 1.56 82% postbronchodilator therapy 1.46 77% Impression: Moderate restrictive ventilatory defect is suggested restrictive defect cannot be diagnosed by spirometry alone if clinically indicated please get complete pulmonary function tests.Evidence of obstructive ventilatory defect is present the degree of obstruction is mask by the restrictive defect.
--- NOTE | 2017-02-12 18:58 | Progress Note ---
Provider Note Provider Note: Patient's SIRS and pneumonia did improved before discharge home.
== END 2017-01-14 15:08 | disposition home health service (06) | DRG 190 ==
LOC: ER 09:28 → EH 13:10 → UNDOADMIN 13:10 → EH 20:22 → 3S 23:10
PROVIDERS: ADMIT Internal Medicine Geriatric Medicine; ATTEND Internal Medicine Geriatric Medicine
PROC: 5A09457 Assistance with Respiratory Ventilation, 24-96 Consecutive Hours, Continuous Positive Airway Pressure (ICD-10-PCS; 2017-01-06)
PROC: 3E0F73Z Introduction of Anti-inflammatory into Respiratory Tract, Via Natural or Artificial Opening (ICD-10-PCS; principal; 2017-01-07)
PROC: 30233N1 Transfusion of Nonautologous Red Blood Cells into Peripheral Vein, Percutaneous Approach (ICD-10-PCS; 2017-01-13)
DX: J44.0 Chronic obstructive pulmonary disease with (acute) lower respiratory infection (principal); J18.9 Pneumonia, unspecified organism; J96.21 Acute and chronic respiratory failure with hypoxia; C34.91 Malignant neoplasm of unspecified part of right bronchus or lung; E11.9 Type 2 diabetes mellitus without complications; K21.9 Gastro-esophageal reflux disease without esophagitis; F41.8 Other specified anxiety disorders; G47.09 Other insomnia; D69.59 Other secondary thrombocytopenia; E78.5 Hyperlipidemia, unspecified; F32.9 Major depressive disorder, single episode, unspecified; J84.10 Pulmonary fibrosis, unspecified; M15.0 Primary generalized (osteo)arthritis; E78.00 Pure hypercholesterolemia, unspecified; F17.210 Nicotine dependence, cigarettes, uncomplicated; J44.9 Chronic obstructive pulmonary disease, unspecified; Z66 Do not resuscitate; Z88.6 Allergy status to analgesic agent; Z90.710 Acquired absence of both cervix and uterus; Z79.899 Other long term (current) drug therapy
CPT/HCPCS: 36415; 36430; 71010; 71275; 80048; 80053; 81001; 82040; 82803; 82962; 83605; 83735; 84100; 85025; 85027; 85610; 85730; 86850; 86900; 86901; 86920; 87040; 87086; 93005; 93010; 94060; 94640; 94660; 96374; 99285; 99406; J0692; J1442; J1956; J3475; J3490; J7030; J7620; P9016